=== PATIENT | female | born 1995 | race Caucasian/White ===

== ENCOUNTER → 2020-11-17 | Outpatient (REF) | payer OTHER ==
[2020-11-17 20:33] LABS: CHLAMYDIA DNA AMPLIFICATION NEGATIVE (NEGATIVE); GC DNA AMPLIFICATION NEGATIVE (NEGATIVE)
== END ==
LOC: M SFHCWAGY 17:03
PROVIDERS: ATTEND Nurse Practitioner Women's Health
DX: Z11.3 Encounter for screening for infections with a predominantly sexual mode of transmission (principal)

== ENCOUNTER → 2020-12-24 | Outpatient (CLI) | payer OTHER ==
--- NOTE | 2020-12-24 10:21 | REP ---
INDICATION: RENAL CALCULI COMPARISON: None. TECHNIQUE: Supine view of the abdomen and pelvis. FINDINGS: 1 cm calcification in the right upper quadrant may represent gallstone. Punctate nonobstructing right renal calculus suspected. Further evaluation of the urinary tract system is limited due to technique and bowel gas. No bowel obstruction. No organomegaly. Skeletal structures intact. IMPRESSION: Suspected cholelithiasis and possible 2 mm nonobstructing right renal calculus. Further evaluation of the urinary tract system is limited. If the patient remains symptomatic consider noncontrast CT of the abdomen. <Electronically signed by Zack Aguilar > 12/24/20 1019
== END ==
LOC: M WUC 09:38
PROVIDERS: ATTEND Urology
DX: N20.0 Calculus of kidney (principal)

== ENCOUNTER 2021-04-08 15:28 | Emergency (ER) | payer OTHER ==
[~2021-04-08] VITALS: Ht 152.4 cm; Wt 64.1 kg
[2021-04-08] MEDS ORDERED: ONDANSETRON 4MG/2ML VIAL IV ONE (17:30)
[2021-04-08] MEDS ORDERED: NS 1,000 ML IV ONE (17:30)
[2021-04-08 17:59] LABS: HEMATOCRIT 41.5 % (36.0-47.0); HEMOGLOBIN 14.1 g/dl (12.0-15.5); MEAN CORPUSCULAR HEMOGLOBIN 30.4 pg (27.0-33.0); MEAN CORPUSCULAR VOLUME 89.4 fl (80.0-96.0); PLATELET COUNT, AUTOMATED 184 10^3/uL (150-450); RED BLOOD COUNT 4.64 10^6/uL (4.00-5.40); WHITE BLOOD COUNT 10.9 10^3/uL (4.0-10.0)
[2021-04-08] MEDS ORDERED: ONDA4TAB6 PO (18:35)
[2021-04-08 19:20] VITALS: BP 122/59
== END 2021-04-08 19:23 | disposition home or self-care (01) ==
LOC: M ED 15:28
DX: O21.9 Vomiting of pregnancy, unspecified (principal); Z3A.01 Less than 8 weeks gestation of pregnancy; K21.9 Gastro-esophageal reflux disease without esophagitis; Z87.442 Personal history of urinary calculi; O99.611 Diseases of the digestive system complicating pregnancy, first trimester
CPT/HCPCS: 84702; 85027; 96361; 96374; 99284; J2405

== ENCOUNTER → 2021-05-03 | Outpatient (CLI) | payer OTHER ==
[~2021-05-03] MED LIST: ONDA4TAB6 PO
[2021-05-03 17:14] LABS: HEMATOCRIT 35.9 % (36.0-47.0); HEMOGLOBIN 12.2 g/dl (12.0-15.5); MEAN CORPUSCULAR HEMOGLOBIN 30.3 pg (27.0-33.0); MEAN CORPUSCULAR VOLUME 89.1 fl (80.0-96.0); PLATELET COUNT, AUTOMATED 186 10^3/uL (150-450); RED BLOOD COUNT 4.03 10^6/uL (4.00-5.40)
[2021-05-03 18:30] LABS: HEPATITIS C VIRUS ABY INDEX < 0.0 INDEX (<0.8); HIV 1&2 SCREEN CENTAUR NEGATIVE (NEGATIVE)
[2021-05-03 18:40] LABS: SICKLE CELL SCREEN NEGATIVE (NEGATIVE)
[2021-05-03 19:08] LABS: GC DNA AMPLIFICATION NEGATIVE (NEGATIVE)
== END ==
LOC: M PLALAB 14:23
PROVIDERS: ATTEND Advanced Practice Midwife
DX: Z34.01 Encounter for supervision of normal first pregnancy, first trimester (principal)

== ENCOUNTER 2021-06-07 12:06 | Emergency (ER) | payer OTHER ==
[~2021-06-07] VITALS: Ht 157.5 cm; Wt 68.0 kg
[2021-06-07 12:06] VITALS: BP 141/73
--- OUTSIDE RECORDS SUMMARY | 2021-06-07 12:12 | CCD | Continuity of Care Document ---
Author Author Kirsty MOORE P.A. Organization Unknown Address [address] [place] [address] Phone [phone] Care Team Providers Care Care Connector Name Role Phone Nguyễn Nicolas Publi AUTM [phone] Anjelica Jain TAXATION ECONOMIST AUTM [phone] Problems Description No Information Available Social History Type Date Description Comments Sex Unknown ETOH Use Denies alcohol use Tobacco Use Start: Unknown The patient has never vaped Tobacco Use Start: Unknown Patient has never smoked Smoking Status Reviewed: 05/13/21 Patient has never smoked Allergies, Adverse Reactions, Alerts Description No Known Drug Allergies Medications Active Medications SIG Qnty Indications Ordering Provide r Date Zyrtec Allergy Unknown Immunizations Description No Information Available Vital Signs Date Vital Result Comment 05/13/2021 11:04am BP Systolic 117 mmHg BP Diastolic 82 mmHg Heart Rate 67 /min Respiratory Rate 16 /min O2 % BldC Oximetry 97 % Body Temperature 96.6 F Weight 136.00 lb Height 60 inches 5'0" BMI (Body Mass Index) 26.6 kg/m2 Pain Level 6 09/24/2020 5:43pm BP Systolic 114 mmHg BP Diastolic 79 mmHg Heart Rate 66 /min Respiratory Rate 12 /min O2 % BldC Oximetry 99 % Body Temperature 97.9 F Weight 144.00 lb Height 60 inches 5'0" BMI (Body Mass Index) 28.1 kg/m2 Pain Level 0 Results Description No Information Available Procedures Date Code Description Status 05/13/2021 52946 Office/Outpatient Established Mo d MDM 30-39 Min Completed Medical Devices Description No Information Available Encounters Type Date Location Provider Dx Diagnosis Office Visit 05/13/2021 9:35a Main Office Brittny Villa J0 6.9 Acute upper respiratory infection, unspecified J01.90 Acute sinusitis, unspecified Z20.828 Contact w and exposure to ot h viral communicable diseases Assessments Date Code Description Provider 05/13/2021 J06.9 Acute upper respiratory infectio n, unspecified Brittny Villa 05/13/2021 J01.90 Acute sinusitis, unspecified Brittny Medrano 05/13/2021 Z20.828 Contact with and (cook spected) exposure to other viral communicable diseases Brittny Villa Plan of Treatment No Information Available Functional Status Description No Information Available Mental Status Description No Information Available Referrals Description No Information Available
--- OUTSIDE RECORDS SUMMARY | 2021-06-07 12:12 | CCD ---
Author Author [facility] [employer] [facility] Organization [facility] [employer] [facility] Address Unknown Phone Unavailable Care Team Providers Care Safety Lamp Keeper Name Role Phone Cindy Avila Unavailable PROBLEMS Type Condition ICD9-CM Code [id number] Code Onset Dates Condition S tatus W/U Status Risk SNOMED Code Notes Problem Calculus of gallbladder without cholecystitis wi thout obstruction K80.20 Active confirmed 91685355 Problem Supervision of other normal Z34.80 Ac tive confirm 595772889 Problem Urinary hesitancy R39.11 Active confirmed 59 54753 Problem Renal calculi N20.0 Active confirmed 915945 07 ALLERGIES No Known Allergies ENCOUNTERS from 1997 to 2021-04-30 Encounter Location Date Provider Diagnosis [facility] [address] [facility] [phone] [place] [address] Apr, Cindy Austin IMMUNIZATIONS No Information SOCIAL HISTORY Tobacco Use: Social History Observation Description Date Details (start date - stop date) Never Smoker Sex Assigned At : Social History Observation Description Sex Assigned At Unknown Education: Question Answer Notes Level of Education: College Audit Question Answer Notes Total Score: 0 Interpretation: Alcohol Education Language: Question Answer Notes Languages spoken: Prydeinig Christianity: Question Answer Notes Christianity No latter day beliefs that would impact health care. Domestic Violence: Question Answer Notes Status: Number of months/years in current relationship? 03/2019 Does the patient divulge that the partner hit them? No Does the patient divulge that the partner hits the chi ldren in the household? No Does the patient consider the partner abusive? No Has the patient ever been in a situation involving domestic violence? No Has the patietn ever been injured, homeb ound, or hospitalized due to an altercation with significant other? No Drug and Alcohol Question Answer Notes Total Score: 0 Interpretation: No problems reported Alcohol Screening: Question Answer Notes Did you have a drink containing alcohol in the past year? No Points 0 Interpretation Negative Tobacco Use: Question Answer Notes Are you a: never smoker REASON FOR REFERRAL No Information VITAL SIGNS No information MEDICATIONS Medication SIG (Take, Route, Frequency, Duration) Notes Start Da te End Date Status 27-1 MG 1 tablet Orally Once a day Active Reglan 10 MG 1 tablet Orally Twice a day for 30 day(s) Mar, Not-Taking Sulfamethoxazole-Trimethoprim 800-160 MG TAKE 1 TABLET BY MOUTH TWICE DAILY FOR 5 DAYS Oral for 5 Not-Taking Lotrimin AF 1 % 1 application Externally Twice a day for 28 day(s) Not-Taking Aurovela FE 1/20 1-20 MG-MCG 1 tablet Orally Once a day for 84 day(s) Not-Taking Zofran 4 MG 1 tablet Orally Once a day prn Active Terbinafine HCl 250 MG 1 tablet Orally Once a day for 90 day(s) May, Not-Taking Clotrimazole 1 % 1 application Externally Twice a day for 28 day(s) Not-Taking PROCEDURES No Information RESULTS No Results REASON FOR VISIT [place] Letter MEDICAL (GENERAL) HISTORY Type Description Date Medical History kidney stone Medical History gall stones Medical History hpv Medical History herpes simplex Medical History abnormal cells on cervic x 1 Surgical History No know Surgical history Hospitalization History No know Hospitalization history Goals Section No Information Health Concerns No Information MEDICAL EQUIPMENT No Information MENTAL STATUS No Information FUNCTIONAL STATUS No Information ASSESSMENTS No Information PLAN OF TREATMENT Next Appt Details Provider Name:Michi Serrato, 09:00:00 AM, [address] [facility], , [place], [address], Insurance Providers Payer Name Payer Address Payer Phone Insured Name Patient Relati onship to Insured Coverage Start Date Coverage End Date [place] [phone] JAQUELIN CUENCA self
--- OUTSIDE RECORDS SUMMARY | 2021-06-07 12:12 | CCD ---
Author Author [facility] Organization [facility] Address Unknown Phone Unavailable Care Team Providers Care Linseed Oil Refiner Name Role Phone Michi Serrato Unavailable PROBLEMS Type Condition ICD9-CM Code [id number] Code Onset Dates Condition S tatus W/U Status Risk SNOMED Code Notes Problem Calculus of gallbladder without cholecystitis wi thout obstruction K80.20 Active confirmed 14364684 Problem Supervision of other normal Z34.80 Ac tive confirm 880944862 Problem Urinary hesitancy R39.11 Active confirmed 59 75421 Problem Renal calculi N20.0 Active confirmed 922456 07 ALLERGIES No Known Allergies ENCOUNTERS from 1997 to 2021-05-20 Encounter Location Date Provider Diagnosis [facility] [address] [place] [address] [place] [address] Apr, Michi Serrato 13 weeks gestation o f Z3A.13 and Encounter for supervision of normal first , first trimester Z34.01 IMMUNIZATIONS No Information SOCIAL HISTORY Tobacco Use: Social History Observation Description Date Details (start date - stop date) Never Smoker Sex Assigned At : Social History Observation Description Sex Assigned At Unknown Education: Question Answer Notes Level of Education: College Audit Question Answer Notes Total Score: 0 Interpretation: Alcohol Education Language: Question Answer Notes Languages spoken: Gibraltarian Scientology: Question Answer Notes Scientology No jew beliefs that would impact health care. Domestic [...] REASON FOR REFERRAL No Information VITAL SIGNS Weight 137 lbs Apr, Weight-kg 62.14 kg Apr, Height 60 in Apr, BMI 26.756 kg/m2 Apr, Blood pressure systolic 118 mm Hg Apr, Blood pressure diastolic 68 mm Hg Apr, MEDICATIONS Medication SIG (Take, Route, Frequency, Duration) Notes Start Da te End Date Status Terbinafine HCl 250 MG 1 tablet Orally Once a day for 90 day(s) May, Not-Taking Reglan 10 MG 1 tablet Orally Twice a day for 30 day(s) Mar, Not-Taking Aurovela FE 1/20 1-20 MG-MCG 1 tablet Orally Once a day for 84 day(s) Not-Taking Lotrimin AF 1 % 1 application Externally Twice a day for 28 day(s) Not-Taking 27-1 MG 1 tablet Orally Once a day Active Clotrimazole 1 % 1 application Externally Twice a day for 28 day(s) Not-Taking Zofran 4 MG 1 tablet Orally Once a day prn Active Sulfamethoxazole-Trimethoprim 800-160 MG TAKE 1 TABLET BY MOUTH TWICE DAILY FOR 5 DAYS Oral for 5 Not-Taking PROCEDURES No Information RESULTS No Results REASON FOR VISIT 4 WK PN MEDICAL (GENERAL) HISTORY Type Description Date Medical History kidney stone Medical History gall stones Medical History hpv Medical History herpes simplex Medical History abnormal cells on cervic x 1 Surgical History No know Surgical history Hospitalization History No know Hospitalization history Goals Section No Information Health Concerns No Information MEDICAL EQUIPMENT No Information MENTAL STATUS No Information FUNCTIONAL STATUS No Information ASSESSMENTS Encounter Date Diagnosis Assessment Notes Treatment Notes Treatm ent Clinical Notes Apr, 13 weeks gestation of (ICD-10 - Z3A.13 ) Apr, Encounter for supervision of normal first , first trimester (ICD-10 - Z34.01) PLAN OF TREATMENT Next Appt Details 4 Weeks Reason: appt Provider Name:Michi Serrato, 2020-10- 07:30:00 AM, [address] [facility], , [place], [address], Follow Up:4 WeeksPrenatal appt Insurance Providers Payer Name Payer Address Payer Phone Insured Name Patient Relati onship to Insured Coverage Start Date Coverage End Date [address] [phone] JAQUELIN CUENCA self
--- OUTSIDE RECORDS SUMMARY | 2021-06-07 12:12 | CCD ---
Author Author [facility] Organization [facility] [employer] [facility] Address Unknown Phone Unavailable Care Team Providers Care Band Teacher Name Role Phone Nohemi Banegas Unavailable PROBLEMS Type Condition ICD9-CM Code [id number] Code Onset Dates Condition S tatus W/U Status Risk SNOMED Code Notes Problem Calculus of gallbladder without cholecystitis wi thout obstruction K80.20 Active confirmed 60922190 Problem Supervision of other normal Z34.80 Ac tive confirm 045494316 Problem Urinary hesitancy R39.11 Active confirmed 59 40715 Problem Renal calculi N20.0 Active confirmed 761915 07 ALLERGIES No Known Allergies ENCOUNTERS from 1997 to 2021-04-21 Encounter Location Date Provider Diagnosis [facility] [address] [place] [address] [place] [address] Mar, Nohemi Munozkathrin Encounter for sup ervision of normal first in first trimester Z34.01 and 9 weeks gestation of Z3A.09 IMMUNIZATIONS No Information SOCIAL HISTORY Tobacco Use: Social History Observation Description Date Details (start date - stop date) Never Smoker Sex Assigned At : Social History Observation Description Sex Assigned At Unknown Education: Question Answer Notes Level of Education: College Audit Question Answer Notes Total Score: 0 Interpretation: Alcohol Education Language: Question Answer Notes Languages spoken: German Nondenominational: Question Answer Notes Nondenominational No taoism beliefs that would impact health care. Domestic [...] FOR REFERRAL No Information VITAL SIGNS Weight 137.8 lbs Mar, Weight-kg 62.5 kg Mar, Height 60 in Mar, BMI 26.912 kg/m2 Mar, Blood pressure systolic 118 mm Hg Mar, Blood pressure diastolic 62 mm Hg Mar, MEDICATIONS Medication SIG (Take, Route, Frequency, Duration) [...] Information RESULTS No Results REASON FOR VISIT 1ST PN MEDICAL (GENERAL) HISTORY Type Description Date [...] Notes Treatment Notes Treatm ent Clinical Notes Mar, Encounter for supervision of normal first in first trimester (ICD-10 - Z34.01) Mar, 9 weeks gestation of (ICD-10 - Z3A.09) PLAN OF TREATMENT Treatment Notes Test Name Order Date HIV 1&2 ANTIBODY SCREEN 2021-04-20 SYPHILIS ANTIBODY (RPR SCREEN) 2021-04-20 CBC - Complete Blood Count 2021-04-20 RUBELLA IMMUNE STATUS IgG 2021-04-20 URINE CULTURE 2021-04-20 CHLAMYDIA & GC DNA AMPLIFICAT 2021-04-20 HEPATITIS C ANTIBODY INDEX 2021-04-20 HBSAG 2021-04-20 Type and Screen Prenatal1 2021-04-20 SICKLE CELL SCREEN 2021-04-20 Next Appt Details 4 Weeks Reason:- Routine follow up Provider Name:Michi Serrato, 09:00:00 AM, [address] [facility], , [place], [address], Follow Up:4 Weeks- Routine follow up Insurance Providers Payer Name Payer Address Payer Phone Insured Name Patient Relati onship to Insured Coverage Start Date Coverage End Date [address] [phone] JAQUELIN CUENCA self
--- OUTSIDE RECORDS SUMMARY | 2021-06-07 12:12 | CCD | Continuity of Care Document ---
Author Author Kirsty MOORE P.A. Organization Unknown Address [address] [place] [address] Phone [phone] Care Team Providers Care Advertising Campaign Manager Name Role Phone Nguyễn Nicolas Publi AUTM [phone] Anjelica Jain ANALYTICAL LEAD AUTM [phone] Problems Description No Information Available Social History [...] Available Procedures Date Code Description Status 05/13/2021 37129 Office/Outpatient Established Mo d MDM 30-39 Min [...]
--- OUTSIDE RECORDS SUMMARY | 2021-06-07 12:13 | CCD | Continuity of Care Document ---
Author Author [facility] Organization [facility] Address Unknown Phone Unavailable Care Team Providers Care Color Checker Roving Or Yarn Name Role Phone Desiree Cornejo Unavailable Unavailable Allergies, Adverse Reactions, Alerts Substance Reaction Status Criticality No Known Allergies Active No Information Medications Medication Instructions Dosage Effective Dates (start - stop) Sta tus Comments No Drug Therapy Prescribed Problems Condition Effective Dates (start - stop) Clinical Status C omments Human immunodeficiency virus [HIV] counseling Other sex counseling Encounter for test, result positive Procedures Procedure Date URINE TEST OFFICE VISIT, [facility] Without Test CVR Blood Pressure CVR Med.Svc. Height/Weight CVR Counterintelligence Analyst.Svc. Contraceptive CVR Counterintelligence Analyst.Svc. Nutrition CVR Counterintelligence Analyst.Svc. Options CVR Counterintelligence Analyst.Svc. WIC CVR Counterintelligence Analyst.Svc. Other CVR Counterintelligence Analyst.Svc. STI / H Results Test Name Date and Time Measure Units Reference Range Abnormal Flag St atus Comments Panel Description: High Sensitivity Urine Test Fi nal High Sensitivity Urine Test 09:12:05 Positive A Final Advance Directives Directive Yes / No Effective Date File Name No Information Encounters Encounter Description Practice Location Reason(s) For Visit Diagnose s Date Provider Providers Copied on Encounter OFFICE VISIT, [facility], [address] , [place], [place], [id number], tel:[phone] [facility] Test (ch ief complaint) Human immunodeficiency virus [HIV] couns elingOther sex counselingEncounter for test, result positive Samantha Ramírez. [address] [place] [address], [id number], [place]. tel:[phone] Referring Provider: Desiree Singh, [address], [place], [id number]. tel:[phone] Family History Family Member Diagnosis Age At Onset No Information Immunizations Vaccine Date Status Comments No Information Payers Payer name Insurance type Covered green party ID Authorization(s ) [facility] [id number] Social History Type Description Quantity Date Captured Comments Alcohol Use Details Unknown Caffeine Use Details Unknown Tobacco Use Status Never smoked tobacco Smoking Status Never smoker Sex Female Vital Signs Date / Time: Height Weight BMI Pulse Rate Blood Pressure Temperatu re Respiratory Rate Body Surface Area Head Circumference BMI percentile Pulse Ox In haled Ox 9:09 AM 60.00 in 146.00 lbs 28.51 kg/meter(2) 118/76 m m[Hg] Chief Complaint And Reason For Visit Most recent encounter only, dated '03/27/2021 09:00'. Test (chief complaint) Reason For Referral Reason For Referral No Information Plan Of Treatment Date Type Action Status No Information History Of Present Illness Encounter Date Complaint History Of Present I llness No Information Functional Status Date Functional Assessment No Information Medications Administered Medication Instructions Dosage Effective Dates (start - stop) Sta tus Comments No Drug Therapy Prescribed Instructions Date Instruction Additional Informati on No Information Assessments Type Assessment Date assessment Human immunodeficiency virus [HIV] couns eling assessment Other sex counseling assessment Encounter for test, result pos itive Goals Health Concern Goal Type Priority Status Date No Information Medical Equipment Description Device Hannah Device Identifier Effective Hood es (start - stop) Status No Information Mental Status Date Cognitive Assessment Orientation - Oriented to ti me, place, person, situation.Normal Orientation Health Concerns Observation Date No Information Concern Status Date No Information Physical Examination Exam Findings Details Neurological Normal Level of consciousne ss - Normal. Orientation - Normal. Psychiatric Normal Orientation - Mobile ed to time, place, person & situation.
--- OUTSIDE RECORDS SUMMARY | 2021-06-07 12:13 | CCD ---
Author Author [facility] Organization [facility] Address Unknown Phone Unavailable Care Team Providers Care Tower Observer Name Role Phone NO, PCP Unavailable Unavailable Dayan Singh Unavailable Unavailable Dayan Singh Unavailable Unavailable Dayan Singh Unavailable Unavailable Dayan Singh Unavailable Unavailable Dayan Singh Unavailable Unavailable Dayan Singh Unavailable Unavailable Dayan Singh Unavailable Unavailable Dayan Singh Unavailable Unavailable Dayan Singh Unavailable Unavailable Dayan Singh Unavailable Unavailable Dayan Singh Unavailable Unavailable Dayan Singh Unavailable Unavailable Dayan Singh Unavailable Unavailable Dayan Singh Unavailable Unavailable Dayan Singh Unavailable Unavailable Dayan Singh Unavailable Unavailable Dayan Singh Unavailable Unavailable Dayan Singh Unavailable Unavailable Dayan Singh Unavailable Unavailable Dayan Singh Unavailable Unavailable Dayan Singh Unavailable Unavailable Dayan Singh Unavailable Unavailable TURRIN, TANIA Unavailable Unavailable TURRIN, TANIA Unavailable Unavailable TURRIN, TANIA Unavailable Unavailable TURRIN, TANIA Unavailable Unavailable JAEMS MOORE PA Unavailable Unavailable OSCARJAMES ANGEL PA Unavailable Unavailable JAMES MOORE PA Unavailable Unavailable JAMES MOORE PA Unavailable Unavailable DANIA MOORENATHAN PA Unavailable Unavailable DANIA MOORENATHAN PA Unavailable Unavailable DANIA MOORENATHAN PA Unavailable Unavailable JAMES MOORE PA Unavailable Unavailable JAMES MOORE PA Unavailable Unavailable OSCAR, JAMES PA Unavailable Unavailable OSCAR, JAMES PA Unavailable Unavailable OSCAR, JAMES PA Unavailable Unavailable OSCAR, JAMES PA Unavailable Unavailable OSCAR, JAMES PA Unavailable Unavailable OSCAR, JAMES PA Unavailable Unavailable OSCAR, JAMES PA Unavailable Unavailable OSCAR, JAMES PA Unavailable Unavailable OSCAR, JAMES PA Unavailable Unavailable OSCAR, JAMES PA Unavailable Unavailable OSCAR, JAMES PA Unavailable Unavailable OSCAR, JAMES PA Unavailable Unavailable OSCAR, JAMES PA Unavailable Unavailable OSCAR, JAMES PA Unavailable Unavailable OSCAR, JAMES PA Unavailable Unavailable OSCAR, JAMES PA Unavailable Unavailable OSCAR, JAMES PA Unavailable Unavailable OSCAR, JAMES PA Unavailable Unavailable OSCAR, JAMES PA Unavailable Unavailable OSCAR, JAMES PA Unavailable Unavailable OSCAR, JAMES PA Unavailable Unavailable OSCAR, JAMES PA Unavailable Unavailable OSCAR, JAMES PA Unavailable Unavailable OSCAR, JAMES PA Unavailable Unavailable OSCAR, JAMES PA Unavailable Unavailable OSCAR, JAMES PA Unavailable Unavailable OSCAR, JAMES PA Unavailable Unavailable RING, K WYATT PA Unavailable Unavailable RING, K WYATT PA Unavailable Unavailable RING, K WYATT PA Unavailable Unavailable RING, K WYATT PA Unavailable Unavailable RING, K WYATT PA Unavailable Unavailable RING, K WYATT PA Unavailable Unavailable RING, K WYATT PA Unavailable Unavailable RING, K WYATT PA Unavailable Unavailable RING, K WYATT PA Unavailable Unavailable RING, K WYATT PA Unavailable Unavailable RING, K WYATT PA Unavailable Unavailable RING, K WYATT PA Unavailable Unavailable RING, K WYATT PA Unavailable Unavailable RING, K WYATT PA Unavailable Unavailable RING, K WYATT PA Unavailable Unavailable RING, K WYATT PA Unavailable Unavailable RING, K WYATT PA Unavailable Unavailable RING, K WYATT PA Unavailable Unavailable RING, K WYATT PA Unavailable Unavailable RING, K WYATT PA Unavailable Unavailable RING, K WYATT PA Unavailable Unavailable Re-disclosure Warning The records that you are about to access may contain information from federally-assisted alcohol or drug abuse programs. If such information is present, then the following federally mandated warning applies: This information has been disclosed to you from records protected by federal confidentiality rules (42 CFR part 2). The federal rules prohibit you from making any further disclosure of this information unless further disclosure is expressly permitted by the written consent of the person to whom it pertains or as otherwise permitted by 42 CFR part 2. A general authorization for the release of medical or other information is NOT sufficient for this purpose. The Federal rules restrict any use of the information to criminally investigate or prosecute any alcohol or drug abuse patient.The records that you are about to access may contain highly sensitive health information, the redisclosure of which is protected by Article 27-F of the [facility] Public Health law. If you continue you may have access to information: Regarding HIV / AIDS; Provided by facilities licensed or operated by the [facility] Office of Mental Health; or Provided by the [facility] Office for People With Developmental Disabilities. If such information is present, then the following [facility] mandated warning applies: This information has been disclosed to you from confidential records which are protected by state law. State law prohibits you from making any further disclosure of this information without the specific written consent of the person to whom it pertains, or as otherwise permitted by law. Any unauthorized further disclosure in violation of state law may result in a fine or fdc sentence or both. A general authorization for the release of medical or other information is NOT sufficient authorization for further disc losure. Encounters Encounter Providers Location Date Indications [facility] [address] [place] [address] 05/18/2021 12:00:00 AM EDT eCW1 ([facility]) Outpatient Attender: JAMES coffey 05/13/2021 09:35:00 AM EDT MEDENT ([facility]) Unknown [address] [facility] [address] 04/30/2021 12:00:00 AM EDT eCW1 ([facility]) ([facility]) [facility] OB Visit [address] [place] [address] 04/20/2021 12:00:00 AM EDT eCW1 ([facility]) Unknown [address] [facility] [id number] 03/29/2021 12:00:00 AM EDT [facility]CW1 [facility] morales 03/27/2021 09:00:00 AM EDT - 03/27/2021 09:00:00 AM EDT Encounter for test, result positiveOther sex counselingHuman immunodeficiency virus [HIV] counseling NextGen ([facility]) Encounter for test, result pos itive Other sex counseling Human immunodeficiency virus [HIV] couns eling Unknown [address] [facility] Y [address] 01/12/2021 12:00:00 AM EDT eCW1 ([facility]) Outpatient [address] [facility] Y [address] 12/07/2020 12:00:00 AM EDT eCW1 ([facility]) Outpatient [address] [facility] Y [address] 11/17/2020 12:00:00 AM EDT eCW1 ([facility]) Outpatient [address] [facility] Y [address] 10/13/2020 12:00:00 AM EST eCW1 ([facility]) Outpatient Attender: WYATT Lee 09/24/2020 04:40:00 PM EST MEDENT ([facility]) Unknown [address] [facility] Y [address] 07/31/2020 12:00:00 AM EST [facility]1 [facility] Unknown [address] [facility] Y [address] 07/23/2020 12:00:00 AM EST [facility] Outpatient [address] [facility] Y [address] 06/18/2020 12:00:00 AM EDT [facility]CW1 [facility]) Unknown [address] [facility] Y [address] 06/07/2020 12:00:00 AM EDT [facility]CW1 [facility] [address] [facility] [place] [address] 06/05/2020 12:00:00 AM EDT eCW1 ([facility]) [place] [address] [facility] [place] [address] 05/28/2020 12:00:00 AM EDT eCW1 ([facility]) Outpatient Attender: JAMES coffey 05/16/2020 09:50:00 AM EDT MEDENT ([facility]) Emergency Attender: TANIA Hernandezsultant: PCP NO 04/22/2020 03:06:00 PM EDT - 04/22/2020 06:08:00 PM EDT [facility] Patient discharged. Medications Medication Brand Name Start Date Product Form Dose Route Admi nistrative Instructions Pharmacy Instructions Status Indications Reaction Description Data Source(s) Metoclopramide 10 MG Oral Tablet [Reglan] Reglan 10 MG Nellie n 10 MG 03/29/2021 12:00:00 AM EDT 1.0 {tablet} suspended Reglan 10 MG eCW1 ([facility]) Metoclopramide 10 MG Oral Tablet [Reglan] Reglan 10 MG Nellie n 10 MG 03/29/2021 12:00:00 AM EDT 1.0 {tablet} suspended Reglan 10 MG eCW1 ([facility]) Metoclopramide 10 MG Oral Tablet [Reglan] Reglan 10 MG Nellie n 10 MG 03/29/2021 12:00:00 AM EDT 1.0 {tablet} suspended Reglan 10 MG eCW1 ([facility]) Metoclopramide 10 MG Oral Tablet [Reglan] Reglan 10 MG Nellie n 10 MG 03/29/2021 12:00:00 AM EDT 1.0 {tablet} active Re glan 10 MG eCW1 ([facility]) Tamsulosin hydrochloride 0.4 MG Oral Capsule Tamsulosin HCL 09/24/2020 12:00:00 AM EST ORAL active MEDENT ([facility], [facility]) No Active Medications 09/24/2020 12:00:00 AM EST completed MEDENT ([facility], [facility]) terbinafine 250 MG Oral Tablet Terbinafine HCl 250 MG Terbin afine HCl 250 MG 06/18/2020 12:00:00 AM EDT 1.0 {tablet} suspende d Terbinafine HCl 250 MG eCW1 ([facility]) terbinafine 250 MG Oral Tablet Terbinafine HCl 250 MG Terbin afine HCl 250 MG 06/18/2020 12:00:00 AM EDT 1.0 {tablet} active Terbinafine HCl 250 MG eCW1 ([facility]) terbinafine 250 MG Oral Tablet Terbinafine HCl 250 MG Terbin afine HCl 250 MG 06/18/2020 12:00:00 AM EDT 1.0 {tablet} suspended eCW1 ([facility]) terbinafine 250 MG Oral Tablet Terbinafine HCl 250 MG Terbin afine HCl 250 MG 06/18/2020 12:00:00 AM EDT 1.0 {tablet} suspende d Terbinafine HCl 250 MG eCW1 ([facility]) terbinafine 250 MG Oral Tablet Terbinafine HCl 250 MG Terbin afine HCl 250 MG 06/18/2020 12:00:00 AM EDT 1.0 {tablet} active Terbinafine HCl 250 MG eCW1 ([facility]) terbinafine 250 MG Oral Tablet Terbinafine HCl 250 MG Terbin afine HCl 250 MG 06/18/2020 12:00:00 AM EDT 1.0 {tablet} suspende d Terbinafine HCl 250 MG eCW1 ([facility]) terbinafine 250 MG Oral Tablet Terbinafine HCl 250 MG Terbin afine HCl 250 MG 06/18/2020 12:00:00 AM EDT 1.0 {tablet} active Terbinafine HCl 250 MG eCW1 ([facility]) terbinafine 250 MG Oral Tablet Terbinafine HCl 250 MG Terbin afine HCl 250 MG 06/18/2020 12:00:00 AM EDT 1.0 {tablet} suspende d Terbinafine HCl 250 MG eCW1 ([facility]) terbinafine 250 MG Oral Tablet Terbinafine HCl 250 MG Terbin afine HCl 250 MG 06/18/2020 12:00:00 AM EDT 1.0 {tablet} suspende d Terbinafine HCl 250 MG eCW1 ([facility]) terbinafine 250 MG Oral Tablet Terbinafine HCl 250 MG Terbin afine HCl 250 MG 06/18/2020 12:00:00 AM EDT 1.0 {tablet} active Terbinafine HCl 250 MG eCW1 ([facility]) terbinafine 250 MG Oral Tablet Terbinafine HCl 250 MG Terbin afine HCl 250 MG 06/18/2020 12:00:00 AM EDT 1.0 {tablet} suspende d Terbinafine HCl 250 MG eCW1 ([facility]) terbinafine 250 MG Oral Tablet Terbinafine HCl 250 MG Terbin afine HCl 250 MG 06/18/2020 12:00:00 AM EDT 1.0 {tablet} suspende d Terbinafine HCl 250 MG eCW1 ([facility]) Clotrimazole 10 MG/ML Topical Cream Clotrimazole 1 % Clotrim azole 1 % 05/28/2020 12:00:00 AM EDT 1.0 {application} active Clotrimazole 1 % eCW1 ([facility]) Clotrimazole 10 MG/ML Topical Cream Clotrimazole 1 % Clotrim azole 1 % 05/28/2020 12:00:00 AM EDT 1.0 {application} active Clotrimazole 1 % eCW1 ([facility]) Hydroxyzine Hydrochloride 25 MG Oral Tablet Hydroxyzine HCL 05/16/2020 12:00:00 AM EDT ORAL completed MEDENT ([facility], [facility]) Insurance Providers Payer name Policy type / Coverage type Policy ID Covered republican ID Covered republican's relationship to dyer Policy Dyer Plan Information [facility] [id number] [facility] - O/P [id number] Problems, Conditions, and Diagnoses Code Display Name Description Problem Type Effective Dates Data Source(s) [id number] Personal history of urinary calculi Personal his tory of urinary calculi Diagnosis 04/22/2020 03:06:00 PM EDT [facility] N3001 Acute cystitis with hematuria Acute cystitis with ld turia Diagnosis 04/22/2020 03:06:00 PM EDT [facility] K8020 Calculus of gallbladder without cholecys titis without obstruction Calculus of gallbladder without cholecystitis without obstruction Diagnosis 04/22/2020 03:06:00 PM EDT [facility] N200 Calculus of kidney Calculus of kidney Diagnosis 0 03:06:00 PM EDT [facility] R300 Dysuria Dysuria Diagnosis 04/22/2020 03:06:00 PM ED T [facility] Z34.80 care Supervision of other normal Maria Esther mancilla 04/19/2021 12:00:00 AM EDT eCW1 ([facility]) N20.0 [id number] Renal calculi Problem 05/28/2020 12:00:00 AM EDT eCW1 ([facility]) R39.11 [id number] Urinary hesitancy Problem 05/28/2020 12:00:0 0 AM EDT eCW1 ([facility]) K80.20 [id number] Calculus of gallblad martha without cholecystitis without obstruction Problem 05/28/2020 12:00:00 AM EDT eCW ([facility]) Surgeries/Procedures Procedure Description Date Indications Data Source(s) OFFICE OUTPATIENT VISIT 25 MINUTES 05/13/2021 12:00:00 AM EDT MEDENT ([facility], [facility]) 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 Contraceptive 03/27/2021 12 :00:00 AM EDT - 03/27/2021 12:00:00 AM EDT [facility] ([facility]) CVR Med.Svc. Height/Weight 03/27/2021 12 :00:00 AM EDT - 03/27/2021 12:00:00 AM EDT [facility] ([facility]) CVR Blood Pressure 03/27/2021 12:00:00 AM EDT - 2020 12:00:00 AM EDT [facility] ([facility]) HCS Without Test 03/27/2021 12:00:00 AM EDT - 03/27/20 21 12:00:00 AM EDT [facility] ([facility]) OFFICE VISIT, NEW 03/27/2021 12:00:00 AM EDT - 021 12:00:00 AM EDT [facility] ([facility]) URINE TEST 03/27/2021 12:00:00 AM EDT - 03/27/2021 12:00:00 AM EDT [facility] ([facility]) Results ID Date Data Source [id number] 05/13/2021 12:00:00 AM EDT [facility] Name Value Range Interpretation Code Description Data Salma rce(s) Supporting Document(s) SARS-CoV2 Rapid Antigen Negative [facility] This lab was reported by [facility]. ID Date Data Source [id number] 07/08/2020 12:00:00 AM EST [facility] Name Value Range Interpretation Code Description Data Salma rce(s) Supporting Document(s) SARS coronavirus 2 Ag [facility] This lab was ordered by [facility] and reported by [facility]. ID Date Data Source [id number] 03/27/2021 09:12:05 AM EDT [facility] ([facility]) Name Value Range Interpretation Code Description Data Salma rce(s) Supporting Document(s) Positive Abnormal (applies to non-num lacho results) High Sensitivity Urine Test [facility] ID Date Data Source CHLAMYDIA & GC DNA AMPLIFICAT 11/17/2020 12:00:00 AM EDT eCW 1 ([facility]) Name Value Range Interpretation Code Description Data Salma rce(s) Supporting Document(s) Chlamydia trachomatis rRNA [Presence] in Unspecified specimen by Probe and target amplification method NEGATIVE NEGATIVE eCW1 ([facility]) ID Date Data Source [id number] 09/24/2020 05:59:00 PM EST MEDENT ([facility]) Name Value Range Interpretation Code Description Data Salma rce(s) Supporting Document(s) Bacteria identified in Urine by Culture Laboratory test result [facility] ([facility]) Rx Tamsulosin ID Date Data Source [id number] 07/23/2020 12:00:00 AM EST [facility] Name Value Range Interpretation Code Description Data Salma rce(s) Supporting Document(s) SARS-CoV2 Rapid Antigen [facility] This lab was ordered by [facility] and reported by [facility]. ID Date Data Source Test, Urine 06/18/2020 12:51:47 PM EDT eCW1 ([facility]) Name Value Range Interpretation Code Description Data Salma rce(s) Supporting Document(s) Choriogonadotropin.beta subunit ( test) [Presence] in Urin e neg Test, Urine eCW1 ([facility]) yes Internal QC Acceptable (Y/N) e CW1 ([facility]) ID Date Data Source Urinalysis, no micro 05/28/2020 01:04:29 PM EDT eCW1 ([facility]) Name Value Range Interpretation Code Description Data Salma rce(s) Supporting Document(s) 1.020 Spec gravity eCW1 ([facility]) trace Leukocyte eCW1 ([facility]) 5 pH eCW1 ([facility]) neg Nitrate eCW1 ([facility]) neg Protein eCW1 ([facility]) neg Glucose eCW1 ([facility]) neg Ketones eCW1 ([facility]) normal Urobili eCW1 ([facility]) Internal QC Acceptable (Y/N) e CW1 ([facility]) neg Bilirubin eCW1 ([facility]) neg Blood eCW1 ([facility]) ID Date Data Source [id number] 04/22/2020 03:06:00 PM EDT [facility] 1 OrderSheet [facility] Emergency Department [address] [place] [address] Phone #: ext- [phone] 04/22/2020 14:52 [id number] Sex: F : 1995 Age: 24yWEIGHT:63.0 kg (S) HEIGHT:60 inches (S) BMI:27.1ALLERGIES: No Known Drug AllergyCHIEF COMPLAINT: dysuriaDIAGNOSIS: Biliary calculus, Urinary tract infectious disease, Kidney stoneLAB ORDERSOrder Description Priority Entered Acknowledged InitialedUrinalysis (Clean STAT 15:08 04/22/2020 15:08 Dimitri Mcdonough) Marce McdonoughNLakshmi RLakshmiNLakshmi; Verbal order per; Paul Mart-CCBC w Diff STAT 15:17 04/22/2020 15:33 Jabari Bear flosserCarl Doshi-C; [id number] STAT 15:17 04/22/2020 15:33 Jabari Bear flosser, Carl ER P.A.-C; [id number] STAT 15:17 04/22/2020 15:33 [place] Paul Bear flosser, Carl HITESH P.A.-C; [id number] Serum Qual STAT 15:17 04/22/2020 15:33 Jabari Bear flosser, Carl ER P.A.-C; Zvzo2Wsadrog, Urine STAT 17:03 04/22/2020 17:25 Janette,(Urine, Clean Rccecil Bear Lucero R.N.Catch) P.A.-C;DIAGNOSTIC STUDY ORDERSOrder Description Priority Entered Acknowledged InitialedCT ABD PEL W/O STAT 15:17 04/22/2020 Ack'd: 15:42 16:45 Sharonda,Oral W/O IV Marce Turner.Preeti.Contrast P.A.-C; R.N.(Oxygen?(No))(IV?(Yes)) Reason for Study: ? renal stoneMEDICATION/IV/DRIP/FLUID ORDERS 2 OrderSheet [facility] Emergency Department [address] [place] [address] Phone #: ext- [phone] 04/22/2020 14:52 Patient: JAQUELIN CUENCA Sex: F : 1995 Age: 24yOrder Description Priority Entered Acknowledged InitialedIV NS : Bolus 500 15:17 04/22/2020 15:43 Sharonda,mL, then 75 mL/hr Paul Zheng R.N. P.A.- C;Zofran IVP 4 mg 15:17 04/22/2020 15:44 Paul Mcdonough R.N. P.A.-C;Benadryl IVP 25 mg 15:17 04/22/2020 15:45 Paul Mcdonough RLakshmiN. P.A.-C;GENERAL ORDERSOrder Description Priority Entered Acknowledged InitialedNPO 15:17 04/22/2020 15:42 Paul Mcdonough R.N., P.A.-C;Saline Lock 15:17 04/22/2020 15:42 Paul Mcdonough R.N.;[Electronically signed by Lucero Savage R.N. (18:13 04/22/2020)][Electronically signed by Paul Bear P.A.-C (12:13 04/23/2020)][Electronically locked by Lucero Savage R.N. (18:13 04/22/2020)] Name Value Range Interpretation Code Description Data Salma rce(s) Supporting Document(s) ID Date Data Source [id number] 04/22/2020 03:06:00 PM EDT [facility] 1 Medication Reconciliation Report [facility] Emergency Department [address] [place] [address] Phone #: ext- [phone] 04/22/2020 14:52 Patient: JAQUELIN CUENCA Sex: F : 1995 Age: 24yWeight: 63.0 kgHeight/Length: 60 in.BMI: 27.1ALLERGIES: No Known Drug AllergyThe patient's Home Medications are listed below:THE FOLLOWING MEDICATIONS NEED TO BE RECONCILED: Control Pills 1 pill, dailyThe source(s) of the original Home Medication information:patientThe following Medications were given to the patient in the Emergency Department:IV NS IV Fluids bolus 500 mL wide open, then 75 mL/hr, administered: 04/22/2020 3:43:00 PMZofran [IVP] IVP 4 mg, administered: 04/22/2020 3:44:00 PMBenadryl [IVP] IVP 25 mg diluted in NS 10 mL, administered: 04/22/2020 3:45:00 PMThe following Medications were prescribed to the patient:Macrobid 100 mg capsule Take 1 capsule twice a day for 7 days -- Dispense 14 capsule. Refills: 0.Substitution permitted.Pharmacy - [facility] [id number] ; [place] [address]. .Flomax 0.4 mg capsule Take 1 capsule once a day for 14 days -- To help with expulsion of stone.recommend to take in the AM. Dispense 14 capsule. Refills: 0. Substitution permitted.Pharmacy - [facility] [address] [place] [address] [address] ; [place] [address]. .naproxen 500 mg tablet Take 1 tablet twice a day for 7 days -- Dispense 14 tablet. Refills: 0.Substitution permitted.[facility] [address] [place] [address] [address] ; [place] [address]. . 2 Medication Reconciliation Report [facility] Emergency Department [address] [place] [address] Phone #: ext- [phone] 04/22/2020 14:52 Patient: JAQUELIN CUENCA Sex: F : 1995 Age: 24ygabapentin 100 mg capsule Take 1 capsule three times a day for 3 days -- Dispense 9 capsule. Refills:0. Substitution permitted.[facility] [phone] ; [place] [address]. FaxNumber: . -- Paul Bear P.A.-C Name Value Range Interpretation Code Description Data Salma rce(s) Supporting Document(s) ID Date Data Source [id number] 04/22/2020 03:06:00 PM EDT [facility] 1 Medication Administration Record [facility] Emergency Department [address] [place] [address] Phone #: ext- [phone] 04/22/2020 14:52 Patient: JAQUELIN CUENCA Sex: F : 1995 Age: 24yWeight: 63.0 kgHeight/Length: 60 inBMI: 27.1ALLERGIES: No Known Drug Allergy Date/Time Medication Administered Medication OrderedStart IV NS IV NS : Bolus 500 mL, then 7515:43 04/22/2020 Dose: IV Fluids mL/hrPMarce owens RCarlie Rate: 75 mL/hr---- Bolus: 500 mL wide openStop Dispensed: 1000 mL bag17:58 04/22/2020 Site: #1 right Lucero Moses R.N.Given ZOFRAN [IVP] (ONDANSETRON HCL) Zofran IVP 4 mg15:44 04/22/2020 Dose: 4 mg IVPPMarce owens R.N. Site: #1 right ACGiven BENADRYL [IVP] (DIPHENHYDRAMINE Benadryl IVP 25 mg15:45 04/22/2020 HCL)Marce Mcdonough R.N. Dose: 25 mg IVP In: NS 10 mL Site: #1 right AC Name Value Range Interpretation Code Description Data Salma rce(s) Supporting Document(s) ID Date Data Source [id number] 04/22/2020 03:06:00 PM EDT [facility] 1 General Instructions [facility] Emergency Department [address] [place] [address] Phone #: [phone] 04/22/2020 14:52 Patient: [facility] Hospitalt#: [id number] Sex: F : 1995 Age: 24yRight nephrolithiasis with urinary tract infection.Cholelithiasis. No obstruction or cholecystitis.Acute urinary tract infection with cystitis and hematuria.INSTRUCTIONSTake Tylenol (Acetaminophen) or Motrin (Ibuprofen) as needed for fever control. Take medicationaccording to label instructions.Drink plenty of fluids.(Recommend to utilize OTC Motrin and Tylenol to control inflammation and pain management.Recommend to follow the instructions on the bottle and not to exceed.).Warnings: Further evaluation is necessary.GENERAL WARNINGS: Return or contact your physician immediately if your condition worsens orchanges unexpectedly, if not improving as expected, or if other problems arise.Prescription Medications:Macrobid 100 mg capsule Take 1 capsule twice a day for 7 days -- Dispense 14 capsule. Refills: 0.Substitution permitted.[address] ; [place] [address]. .Flomax 0.4 mg capsule Take 1 capsule once a day for 14 days -- To help with expulsion of stone.recommend to take in the AM. Dispense 14 capsule. Refills: 0. Substitution permitted.[address] ; [place] [address]. .naproxen 500 mg tablet Take 1 tablet twice a day for 7 days -- Dispense 14 tablet. Refills: 0.Substitution permitted.[address] ; [place] [address]. FaxNumber: .gabapentin 100 mg capsule Take 1 capsule three times a day for 3 days -- Dispense 9 capsule. Refills:0. Substitution permitted.[address] ; [place] [address]. .Follow-up: 2 General Instructions [facility] Emergency Department [address] [place] [address] Phone #: ext- [phone] 04/22/2020 14:52 Patient: JAQULEIN CUENCA Sex: F : 1995 Age: 24yRetu rn to the emergency department as needed. Follow up with your healthcare provider in about twodays if not better. Call for an appointment. Follow up with a urologist- as recommended by your healthcare provider- Dr. Jesus Melgar, [facility].Understanding of the discharge instructions verbalized by patient.Follow-up with: [facility], , , [address] [place] [address], [facility] Follow up. Reason for referral: evaluation, treatment and To establish care.Follow-up with: [facility], , , [address] [place] [address], [facility]; [facility], , , [address] [place] [address], [facility] Follow up. Reason for referral: evaluation and treatment. ADDITIONAL INFORMATIONBladder Infection, Female (Adult)Urine is normally doesn't have any bacteria in it. But bacteria can get into the urinary tract from theskin around the rectum. Or they can travel in the blood from elsewhere in the body. Once they are inyour urinary tract, they can cause infection in the urethra (urethritis), the bladder (cystitis), or thekidneys (pyelonephritis).The most common place for an infection is in the bladder. This is called a bladder infection. This isone of the most common infections in women. Most bladder infections are easily treated. They are 3 General Instructions [facility] Emergency Department [address] [place] [address] Phone #: ext- [phone] 04/22/2020 14:52 Patient: JAQUELIN CUENCA Sex: Clari : 1995 Age: 24ynot serious unless the infection spreads to the kidney.The phrases "bladder infection," "UTI," and "cystitis" are often used to describe the same thing. Butthey are not always the same. Cystitis is an inflammation of the bladder. The most common cause ofcystitis is an infection.SymptomsThe infection causes inflammation in the urethra and bladder. This causes many of the symptoms.The most common symptoms of a bladder infection are: Pain or burning when urinating Having to urinate more often than usual Urgent need to urinate Only a small amount of urine comes out Blood in urine Abdominal discomfort. This is usually in the lower abdomen above the pubic bone. Cloudy urine Strong- or bad-smelling urine Unable to urinate (urinary retention) Unable to hold urine in (urinary incontinence) Fever Loss of appetite Confusion (in older adults)CausesBladder infections are not contagious. You can't get one from someone else, from a toilet seat, orfrom sharing a bath.The most common cause of bladder infections is bacteria from the bowels. The bacteria get onto theskin around the opening of the urethra. From there, they can get into the urine and travel up to thebladder, causing inflammation and infection. This usually happens because of: Wiping improperly after urinating. Always wipe from front to back. Bowel incontinence 4 General Instructions [facility] Emergency Department [address] [place] [address] Phone #: ext- [phone] 04/22/2020 14:52 Patient: JAQUELIN CUENCA Sex: F : 1995 Age: 24y Procedures such as having a catheter inserted Older age Not emptying your bladder. This can allow bacteria a chance to grow in your urine. Dehydration Constipation Sex Use of a diaphragm for controlTreatmentBladder infections are diagnosed by a urine test. They are treated with antibiotics and usually clear upquickly without complications. Treatment helps prevent a more serious kidney infection.MedicinesMedicines can help in the treatment of a bladder infection: Take antibiotics until they are used up, even if you feel better. It is important to finish them to make sure the infection has cleared. You can use acetaminophen or ibuprofen for pain, fever, or discomfort, unless another medicine was prescribed. If you have chronic liver or kidney disease, talk with your healthcare provider before using these medicines. Also talk with your provider if you've ever had a stomach ulcer or gastrointestinal bleeding, or are taking blood-thinner medicines. If you are given phenazopydridine to reduce burning with urination, it will cause your urine to become a bright orange color. This can stain clothing.Care and preventionThese self-care steps can help prevent future infections: Drink plenty of fluids to prevent dehydration and flush out your bladder. Do this unless you must restrict fluids for other health reasons, or your doctor told you not to. Proper cleaning after going to the bathroom is important. Wipe from front to back after using the toilet to prevent the spread of bacteria. Urinate more often. Don't try to hold urine in for a long time. 5 General Instructions [facility] Emergency Department [address] [place] [address] Phone #: ext- [phone] 04/22/2020 14:52 Patient: JAQUELIN CUENCA Sex: F : 1995 Age: 24y Wear loose-fitting clothes and cotton underwear. Avoid tight-fitting pants. Improve your diet and prevent constipation. Eat more fresh fruit and vegetables, and fiber, and less junk and fatty foods. Avoid sex until your symptoms are gone. Avoid caffeine, alcohol, and spicy foods. These can irritate your bladder. Urinate right after intercourse to flush out your bladder. If you use control pills and have frequent bladder infections, discuss it with your doctor.Follow-up careCall your healthcare provider if all symptoms are not gone after 3 days of treatment. This is especiallyimportant if you have repeat infections.If a culture was done, you will be told if your treatment needs to be changed. If directed, you cancall to find out the results.If X-rays were done, you will be told if the results will affect your treatment.Call 911Call 911 if any of the following occur: Trouble breathing Hard to wake up or confusion Fainting or loss of consciousness Rapid heart rateWhen to seek medical adviceCall your healthcare provider right away if any of these occur: Fever of 100.4F (38.0C) or higher, or as directed by your healthcare provider Symptoms are not better by the third day of treatment Back or belly (abdominal) pain that gets worse Repeated vomiting, or unable to keep medicine down Weakness or dizziness Vaginal discharge 6 General Instructions [facility] Emergency Department [address] [place] [address] Phone #: ext- [phone] 04/22/2020 14:52 Patient: JAQUELIN CUENCA Sex: F : 1995 Age: 24y Pain, redness, or swelling in the outer vaginal area (labia) 1304-7414 [employer]. [address] [place] [address], [place] [address]. All rights reserved. This information is not intended as asubstitute for professional medical care. Always follow your healthcare es jia's instructions.Male Bladder Infection (Child)A bladder infection is when bacteria cause the bladder to be inflamed. The bladder holds urine. Atube called the urethra takes urine from the bladder out of the body. Sometimes bacteria can travel upthe urethra. This causes the infection.The most common cause of bladder infections in children is bacteria from the bowels. The bacteriacan get onto the skin around the urethra, and then into the urine. From there it can travel up to thebladder. This can happen because of: Poor cleaning after using the toilet or during a diaper change Poor cleaning of the foreskin Not completely emptying the bladder Constipation that prevents the bladder from emptying completely Not drinking enough fluids to urinate often Irritation of the urethra from soaps or tight clothesSymptoms of a bladder infection include the need to urinate often and urgently. It may be painful. Theurine may have a strong smell. It may be dark, tinted with blood, or cloudy. Your child may not beable to hold urine and may wet the bed or clothes. Your child may also have a fever and belly pain.Some children don't have symptoms. A baby may be fussy and not able to be soothed. He or shemay cry when urinating. Your baby may also feed less or be less active.A bladder infection is treated with antibiotics. Your child's healthcare provider may also prescribe amedicine to treat pain. Children get better from a bladder infection quickly.In many cases a bladder infection will come back. It's important to take steps to prevent it (seebelow).Home careThe healthcare provider may prescribe medicine to treat the infection. Follow all instructions for givingthis medicine to your child. Use the medicine as instructed every day until it is gone. Don't stop givingit to your child if he feels better. Don't give your child aspirin unless you are told to by the healthcareprovider.For children ages 2 and up: If your child's healthcare provider says it's OK, you can give 7 General Instructions [facility] Emergency Department [address] [place] [address] Phone #: ext- [phone] 04/22/2020 14:52 Patient: JAQUELIN CUENCA Sex: F : 1995 Age: 24yacetaminophen or ibuprofen for pain, fever, fussiness, or discomfort. If your child has chronic liver orkidney disease, talk with the healthcare provider before giving these medicines. Also talk with yourprovider if your child has ever had a stomach ulcer or GI bleeding, or is taking blood thinners.General care Keep track of how often your child urinates. Note the urine color and amount. Tell your child to urinate often. Tell him to completely empty the bladder each time. This will help flush out bacteria. Have your child wear loose clothes and cotton underwear. Make sure that your child drinks enough fluids. Give your child cranberry juice if advised by the healthcare provider.Prevention Clean your child's penis every day. If he is uncircumcised, retract the foreskin when cleaning. Make sure diapers aren't tight. If you use cloth diapers, use cotton or wool protectors rather than nylon or rubber pants. Change soiled diapers right away. Make sure your child drinks plenty of fluids. Or, make sure your baby feeds often. This is to prevent dehydration. Make sure your child urinates when needed, and does not hold it in. Don't give your child bubble baths. They can irritate the urethra.Follow-up careFollow up with your child's healthcare provider, or as advised. If a culture was done, you will be told ofany new findings that may affect your child's care.Call [phone] if any of these occur: Trouble breathing Difficulty arousing Fainting or loss of consciousness Rapid heart rate 8 General Instructions [facility] Emergency Department [address] [place] [address] Phone #: ext- [phone] 04/22/2020 14:52 Patient: JAQUELIN CUENCA Sex: F : 1995 Age: 24y SeizureWhen to seek medical adviceCall your child's healthcare provider right away if any of these occur: Fever of 100.4F (38C) or higher, or as directed by your child's healthcare provider Symptoms don't get better after 24 hours of treatment Vomiting or inability to keep down medicine Pain gets worse Pain in the low back, belly, or side Foul-smelling urine Yellow tint to the skin or eyes (jaundice) 9561-9751 [employer]. [address] [place], [place] [address]. All rights reserved. This information is not intended as asubstitute for professional medical care. Always follow your healthcare professional's instructions.Kidney Stone with Pain 9 General Instructions [facility] Emergency Department [address] [place] [address] Phone #: ext- [phone] 04/22/2020 14:52 Patient: JAQUELIN CUENCA Sex: F : 1995 Age: 24yThe sharp cramping pain on either side of your lower back and nausea/vomiting that you have arebecause of a small stone that has formed in the kidney. It is now passing down a narrow tube (ureter)on its way to your bladder. Once the stone reaches your bladder, the pain will often stop. But it maycome back as the stone continues to pass out of the bladder and through the urethra. The stone maypass in your urine stream in one piece. The size may be 1/16 inch to 1/4 inch (1 mm to 6 mm). Or, thestone may break up into minerva fragments that you may not even notice.Once you have had a kidney stone, you are at risk of getting another one in the future. There are 4types of kidney stones. Eighty percent are calcium stones--mostly calcium oxalate but also somewith calcium phosphate. The other 3 types include uric acid stones, struvite stones (from a precedinginfection), and rarely, cystine stones.Most stones will pass on their own, but may take from a few hours to a few days. Sometimes thestone is too large to pass by itself. In that case, the healthcare provider will need to use other ways toremove the stone. These techniques include: Lithotripsy. This uses ultrasound waves to break up the stone. Ureteroscopy. This pushes a basket-like instrument through the urethra and bladder and into the ureter to pull out the stone. Various types of direct surgery through the skinHome careThe following are general care guidelines: Drink plenty of fluids. This means at least 12, 8- ounce glasses of fluid--mostly water--a day. Each time you urinate, do so in a jar. Pour the urine from the jar through the strainer and into the toilet. Continue doing this until 24 hours after your pain stops. By then, if there was a kidney stone, it should pass from your bladder. Some stones dissolve into sand-like particles and pass right through the strainer. In that case, you w on't ever see a stone. Save any stone that you find in the strainer and bring it to your healthcare provider to look at. It may be possible to stop certain types of stones from forming. For this reason, it is important to know what kind of stone you have. Try to stay as active as possible. This will help the stone pass. Don't stay in bed unless your pain keeps you from getting up. You may notice a red, pink, or brown color to your urine. This is normal while passing a kidney stone. If you develop pain, you may take ibuprofen or naproxen for pain, unless another medicine was prescribed. If you have chronic liver or kidney disease, talk with your healthcare provider before taking these medicines. Also talk with your provider if you've had a stomach ulcer or GI 10 General Instructions [facility] Emergency Department [address] [place] [address] Phone #: ext- [phone] 04/22/2020 14:52 Patient: JAQUELIN CUENCA Sex: F : 1995 Age: 24y bleeding.Preventing stonesEach year for the next 5 to 7 years, you are at risk that a new stone will form. Your risk is a 50%chance over this time period. The risk is higher if you have a family history of kidney stones or havecertain chronic illnesses like hypertension, obesity, or diabetes. But you can make changes to yourlifestyle and diet that can lower your risk for another stone.Most kidney stones are made of calcium. The following is advice for preventing another calciumstone. If you don't know the type of stone you have, follow this advice until the cause of your stone isfound.Things that help: The most important thing you can do is to drink plenty of fluids each day. See home care above. Eat foods that contain phytates. These include wheat, rice, rye, barley, and beans. Phytates are substances that may lower your risk for any type of stone to form. Eat more fruits and vegetables. Choose those that are high in potassium. Eat foods high in natural citrate like fruit and low-sugar fruit juices. Having too little calcium in your diet can put you at risk for calcium kidney stones. Eat a normal amount of calcium in your diet and talk with your healthcare provider if you are taking calcium supplements. Cutting back on your calcium intake may raise your risk. New research shows that eating calcium-rich and oxalate-rich foods together lowers your risk for stones by binding the minerals in the stomach and intestines before they can reach the kidneys. Limit salt intake to 2 grams (1 teaspoon) per day. Use limited amounts when cooking, and don't add salt at the table. Processed and canned foods are usually high in salt. Spinach, rhubarb, peanuts, cashews, almonds, grapefruit, and grapefruit juice are all high oxalate foods. You should limit how much of these you eat. Or eat them with calcium-rich foods. These include dairy products, dark leafy greens, soy products, and calcium-enriched foods. Reducing the amount of animal meat and high protein foods in your diet may lower your risk for uric acid stones. Avoid excess sugar (sucrose) and fructose (sweetener in many soft drinks) in your diet. If you take vitamin C as a supplement, don't take more than 1,000 mg a day. A dietitian or your healthcare provider can give you information about changes in your diet 11 General Instructions [facility] Emergency Department [address] [place] [address] Phone #: ext- [phone] 04/22/2020 14:52 Patient: JAQUELIN CUENCA Sex: F : 1995 Age: 24y that will help prevent more kidney stones from forming.Follow-up careFollow up with your healthcare provider, or as advised, if the pain lasts more than 48 hours. Talk withyour provider about urine and blood tests to find out the cause of your stone. If you had an X-ray, CTscan, or other diagnostic test, you will be told of any new findings that may affect your care.Call [phone] if you have any of these: Weakness, dizziness, or faintingWhen to seek medical adviceCall your healthcare provider right away if any of these occur: Pain that is not controlled by the medicine given Repeated vomiting or unable to keep down fluids Fever of 100.4F (38C) or higher, or as directed by your healthcare provider Passage of solid red or brown urine (can't see through it) or urine with lots of blood clots Foul-smelling or cloudy urine Unable to pass urine for 8 hours and in creasing bladder pressure [id number] [employer]. [address] [place] [address]. All rights reserved. This information is not intended as asubstitute for professional medical care. Always follow your healthcare professional's instructions.Kidney Stone, Undescended, No Symptoms 12 General Instructions [facility] Emergency Department [address] [place] [address] Phone #: ext- [phone] 04/22/2020 14:52 Patient: JAQUELIN CUENCA Sex: F : 1995 Age: 24yA kidney stone (nephrolithiasis) begins as tiny crystals that form inside the kidney where urine ismade. Most kidney stones enlarge to about 1/8 to 1/4 inch in size before leaving the kidney andmoving toward the bladder. There are 4 types of kidney stones. Eighty percent are calciumstones--mostly calcium oxalate but also some with calcium phosphate. The other 3 types include uricacid stones, struvite stones (from a preceding infection), and rarely, cystine stones.When the stone breaks free and begins to move down the ureter (the narrow tube joining the kidneyto the bladder) it often causes sharp back and side pain, often with nausea and vomiting. When thestone reaches the bladder, the pain stops. Once in your bladder, the kidney stone may pass throughthe urethra (urinary opening) while you are urinating (which may cause pain to start again). Or, it maybreak into such small fragments that you don't notice it passing.Your kidney stone is still inside the kidney. There is no way to predict how long it will be before itbreaks free and causes any symptoms. Most stones will pass on their own within a few hours to a fewdays (sometimes longer). You may notice a red, pink, or brown color to your urine. This is normalwhile passing a kidney stone. A large stone may not pass on its own and may require specialprocedures to remove it. These procedures include lithotripsy, which uses ultrasound waves to breakup the stone; ureteroscopy, which pushes a thin, basket-like instrument through the urethra andbladder and into the ureter to pull out the stone; and various types of direct surgery through the skin.Home careThe following guidelines will help you care for yourself at home: 13 General Instructions [facility] Emergency Department [address] [place] [address] Phone #: ext- [phone] 04/22/2020 14:52 Patient: JAQUELIN CUENCA Sex: F : 1995 Age: 24y Drink plenty of fluids. This increases urine flow and reduces the risk of further stone formation. Healthy adults (no heart/liver/kidney disease) who have had a kidney stone should drink 12, 8-ounce glasses of fluids per day. Most of this should be water. The goal is to produce 1.5 to 2 quarts of almost colorless urine per 24 hours. You should collect your urine in a container and then drain it through a strainer to collect any stones or pieces of stones. Take these to your healthcare provider to help identify your specific type of stone to aid in future treatment and dietary changes. Try to stay as active as possible since this will help the stone pass. Don't stay in bed unless you have pain that prevents you from getting up. If you develop pain, you may take ibuprofen or naproxen for pain, unless another medicine was prescribed. If you have chronic liver or kidney disease or ever had a stomach ulcer or GI bleeding, talk with your healthcare provider before using these medicines.PreventionEach year, there is a 5% to 10% chance that a new stone will form (50% chance over the next 5 to 7years). The risk is higher if you have a family history of kidney stones or have certain chronicillnesses such as hypertension, obesity, or diabetes. However, there are lifestyle and dietary changesthat you can make to reduce the risk of a recurrence.Most kidney stones are made of calcium. The following is advice for preventing a recurrence ofcalcium stones. If you don't know the type of stone you have, follow this advice until the cause ofyour stone is determined.Things that help: The most important thing you can do is to drink plenty of fluids each day, as described above. Certain foods, such as wheat, rice, rye, barley and beans, contain phytate, a compound that may lower the risk of recurrence of any type of stone. Eat more fruits and vegetables (especially those high in potassium). Eat foods high in natural citrate like fruit and fruit juices (using low sugar). Low calcium contributes to the formation of calcium type kidney stones. Eat a normal calcium diet and speak with your doctor if you are taking calcium supplements. It may be detrimental to reduce your calcium intake. New research shows that eating calcium-rich and oxalate-rich foods together lowers your risk of stones by binding the minerals in the stomach and intestines before they can reach the kidneys. Limit salt intake to 2 grams (1 teaspoon) per day. Use limited amounts when cooking, and 14 General Instructions [facility] Emergency Department [address] [place] [address] Phone #: ext- [phone] 04/22/2020 14:52 Patient: JAQUELIN CUENCA Sex: F : 1995 Age: 24y don't add salt at the table. Processed and canned foods are usually high in salt. Spinach, rhubarb, peanuts, cashews and almonds, grapefruit and grapefruit juice are all high oxalate foods and should be reduced, or eaten with calcium rich foods. These foods include dairy, dark leafy greens, soy products, and calcium enriched foods. Reducing the amount of animal meat in your diet may lower your risk of uric acid stones. Don't have excess sugar (sucrose) and fructose (sweetener in many soft drinks) in your diet. If you take vitamin C as a supplement, do not take more than 1,000 milligrams (mg) per day. A dietitian or your healthcare provider can provide you with specific details about dietary changes to prevent kidney stone recurrence.Follow-up careFollow up with your healthcare provider, or as advised. Talk with your healthcare provider about urineand blood tests to find out the cause of your stone.If you had an X-ray, CT scan, or other diagnostic test, you will be notified of any findings that mayaffect your care.Call [phone] if you have any of these: Weakness, dizziness, or faintingWhen to seek medical adviceCall your healthcare provider right away if any of the these occur: Severe sharp back or side pain Repeated vomiting or unable to keep down fluids Fever of 100.4F (38C) or higher, or as directed by your health care provider Blood (pink or red color) in your urine Foul smelling or cloudy urine Unable to pass urine for 8 hours or increasing bladder pressure [id number] [employer]. [address] [place] [address], [place] [address]. All rights reserved. This information is not intended as asubstitute for professional medical care. Always follow your healthcare professional's instructions. 15 General Instructions [facility] Emergency Department [address] [place] [address] Phone #: ext- [phone] 04/22/2020 14:52 Patient: JAQUELIN CUENCA Sex: F : 1995 Age: 24yBladder Infection, Female (Adult)Urine is normally doesn't have any bacteria in it. But bacteria can get into the urinary tract from theskin around the rectum. Or they can travel in the blood from elsewhere in the body. Once they are inyour urinary tract, they can cause infection in the urethra (urethritis), the bladder (cystitis), or thekidneys (pyelonephritis).The most common place for an infection is in the bladder. This is called a bladder infection. This isone of the most common infections in women. Most bladder infections are easily treated. They arenot serious unless the infection spreads to the kidney.The phrases "bladder infection," "UTI," and "cystitis" are often used to describe the same thing. Butthey are not always the same. Cystitis is an inflammation of the bladder. The most common cause ofcystitis is an infection.SymptomsThe infection causes inflammation in the urethra and bladder. This causes many of the symptoms.The most common symptoms of a bladder infection are: Pain or burning when urinating Having to urinate more often than usual Urgent need to urinate Only a small amount of urine comes out 16 General Instructions [facility] Emergency Department [address] [place], [place] [id number] Phone #: ext- [phone] 04/22/2020 14:52 Patient: JAQUELIN CUENCA Sex: F : 1995 Age: 24y Blood in urine Abdominal discomfort. This is usually in the lower abdomen above the pubic bone. Cloudy urine Strong- or bad-smelling urine Unable to urinate (urinary retention) Unable to hold urine in (urinary incontinence) Fever Loss of appetite Confusion (in older adults)CausesBladder infections are not contagious. You can't get one from someone else, from a toilet seat, orfrom sharing a bath.The most common cause of bladder infections is bacteria from the bowels. The bacteria get onto theskin around the opening of the urethra. From there, they can get into the urine and travel up to thebladder, causing inflammation and infection. This usually happens because of: Wiping improperly after urinating. Always wipe from front to back. Bowel incontinence Procedures such as having a catheter inserted Older age Not emptying your bladder. This can allow bacteria a chance to grow in your urine. Dehydration Constipation Sex Use of a diaphragm for controlTreatmentBladder infections are diagnosed by a urine test. They are treated with antibiotics and usually clear up 17 General Instructions [facility] Emergency Department [address] [place] [address] Phone #: ext- [phone] 04/22/2020 14:52 Patient: JAQUELIN CUENCA Sex: F : 1995 Age: 24yquickly without complications. Treatment helps prevent a more serious kidney infection.MedicinesMedicines can help in the treatment of a bladder infection: Take antibiotics until they are used up, even if you feel better. It is important to finish them to make sure the infection has cleared. You can use acetaminophen or ibuprofen for pain, fever, or discomfort, unless another medicine was prescribed. If you have chronic liver or kidney disease, talk with your healthcare provider before using these medicines. Also talk with your provider if you've ever had a stomach ulcer or gastrointestinal bleeding, or are taking blood-thinner medicines. If you are given phenazopydridine to reduce burning with urination, it will cause your urine to become a bright orange color. This can stain clothing.Care and preventionThese self-care steps can help prevent future infections: Drink plenty of fluids to prevent dehydration and flush out your bladder. Do this unless you must restrict fluids for other health reasons, or your doctor told you not to. Proper cleaning after going to the bathroom is important. Wipe from front to back after using the toilet to prevent the spread of bacteria. Urinate more often. Don't try to hold urine in for a long time. Wear loose-fitting clothes and cotton underwear. Avoid tight-fitting pants. Improve your diet and prevent constipation. Eat more fresh fruit and vegetables, and fiber, and less junk and fatty foods. Avoid sex until your symptoms are gone. Avoid caffeine, alcohol, and spicy foods. These can irritate your bladder. Urinate right after intercourse to flush out your bladder. If you use control pills and have frequent bladder infections, discuss it with your doctor.Follow-up careCall your healthcare provider if all symptoms are not gone after 3 days of treatment. This is especiallyimportant if you have repeat infections.If a culture was done, you will be told if your treatment needs to be changed. If directed, you can 18 General Instructions [facility] Emergency Department [address] [place] [address] Phone #: ext- [phone] 04/22/2020 14:52 Patient: JAQUELIN CUENCA Sex: F : 1995 Age: 24ycall to find out the results.If X-rays were done, you will be told if the results will affect your treatment.Call [phone] if any of the following occur: Trouble breathing Hard to wake up or confusion Fainting or loss of consciousness Rapid heart rateWhen to seek medical adviceCall your healthcare provider right away if any of these occur: Fever of 100.4F (38.0C) or higher, or as directed by your healthcare provider Symptoms are not better by the third day of treatment Back or belly (abdominal) pain that gets worse Repeated vomiting, or unable to keep medicine down Weakness or dizziness Vaginal discharge Pain, redness, or swelling in the outer vaginal area (labia) [id number] [employer]. [address] [place] [address]. All rights reserved. This information is not intended as asubstitute for professional medical care. Always follow your healthcare professional's instructions.Blood in the Urine 19 General Instructions [facility] Emergency Department [address] [place] [address] Phone #: ext- [phone] 04/22/2020 14:52 Patient: JAQUELIN CUENCA Sex: F : 1995 Age: 24yBlood in the urine (hematuria) has many possible causes. If it occurs after an injury (such as a caraccident or fall), it is most often a sign of bruising to the kidney or bladder. Common causes of bloodin the urine include urinary tract infections, kidney stones, inflammation, tumors, or certain otherdiseases of the kidney or bladder. Menstruation can cause blood to appear in the urine sample,although it is not coming from the urinary tract.If only a trace amount of blood is present, it will show up on the urine test, even though the urine maybe yellow and not pink or red. This may occur with any of the above conditions, as well as heavyexercise or high fever. In this case, your doctor may want to repeat the urine test on another day. Thiswill show if the blood is still present. If it is, then other tests can be done to find out the cause.Home careFollow these home care guidelines: If your urine does not appear bloody (pink, brown or red) then you do not need to restrict your activity in any way. If you can see blood in your urine, rest and avoid heavy exertion until your next exam. Do not use aspirin, blood thinners, or anti-platelet or anti- inflammatory medicines. These include ibuprofen and naproxen. These thin the blood and may increase bleeding.Follow-up careFollow up with your healthcare provider, or as advised. If you were injured and had blood in your 20 General Instructions [facility] Emergency Department [address] [place] [address] Phone #: [phone]- [phone] 04/22/2020 14:52 Patient: JAQUELIN CUENCA Sex: F : 1995 Age: 24yurine, you should have a repeat urine test in 1 to 2 days. Contact your doctor for this test.A radiologist will review any X-rays that were taken. You will be told of any new findings that mayaffect your care.When to seek medical adviceCall your healthcare provider right away if any of these occur: Bright red blood or blood clots in the urine (if you did not have this before) Weakness, dizziness or fainting New groin, abdominal, or back pain Fever of 100.4F (38C) or higher, or as directed by your healthcare provider Repeated vomiting Bleeding from the nose or gums or easy bruising [id number] [employer]. [address] [place] [address]. All rights reserved. This information is not intended as asubstitute for professional medical care. Always follow your healthcare prof essional's instructions.Gallstones with Biliary ColicYour abdominal pain due to irritation and spasm of the gallbladder. This is called biliary colic. Thegallbladder is a small sac under the liver, which stores and releases a bile. Bile is a fluid made in theliver that aids in the digestion of fat. A collection of crystals may form stones inside the gallbladder(gallstones). Gallstones can cause the gallbladder to spasm. If they block the duct out of the 21 General Instructions [facility] Emergency Department [address] [place] [address] Phone #: ext- [phone] 04/22/2020 14:52 Patient: JAQUELIN CUENCA Sex: F : 1995 Age: 24ygallbladder, they can cause pain and even an infection.A number of factors increase the risk for having gallstones: Being female Being severely overweight (obese) Older age Losing or gaining weight quickly Eating a high-calorie diet Being Taking hormone therapy Having diabetesHome care Rest in bed. Drink only clear liquids until you feel better. You may have been prescribed medicine for pain or nausea. Take these as directed. Fat in your diet makes the gallbladder contract and may cause increased pain. Don't eat foods that are high in fat (such as full-fat dairy, fried foods, and fatty meats) for at least 2 days. If you are overweight, talk to your healthcare provider about losing weight.Follow-up careFollow up with your healthcare provider or as advised. There is a chance that you will have anotherepisode of pain from your gallstones at some point. Removal of the gallbladder is an option to preventthis. Talk with your healthcare provider about your treatment options.When to seek medical adviceCall your healthcare provider if any of the following occur: Worsening pain or pain lasting for longer than 6 hours Pain moving to the right lower belly Repeated vomiting Swollen belly 22 General Instructions [facility] Emergency Department [address] [place] [address] Phone #: ext- [phone] 04/22/2020 14:52 - Patient: JAQUELIN CUENCA Sex: F : 1995 Age: 24y Fever of 100.4F (38C) or higher, or as directed by your healthcare provider Very dark urine, light colored stools, or yellow color of the skin or eyes Chest, arm, back, neck or jaw pain 1999- 2017 [employer]. [address] [place] [address]. All rights reserved. This information is not intended as asubstitute for professional medical care. Always follow your healthcare professional's instructions. You have been given the following additional information: Bladder Infection, Female (Adult) Bladder Infection (Cystitis), Male (Child) Kidney Stone w/ Colic Kidney Stone, Undescended (No Symptoms) Bladder Infection, Female (Adult) Hematuria Gallstones with Biliary Colic(Electronically signed by Rc Bear P.A.-C 04/23/2020 12:13) Name Value Range Interpretation Code Description Data Salma rce(s) Supporting Document(s) ID Date Data Source [id number] 04/22/2020 03:06:00 PM EDT [facility] 1 Clinical Report - Nurses [facility] Emergency Department [address] [place] [address] Phone #: ext- [phone] 04/22/2020 14:52 Patient: JAQUELIN CUENCA Sex: F : 1995 Age: 24yTRIAGEArrived by private vehicle. Historian: patient. Accompanied by spouse.Triage time: late entry - 14:50 04/22/2020. Acuity: LEVEL 3.Chief Complaint: PAINFUL URINATION and URINARY FREQUENCY and URGENCY.Alert. No acute distress.Onset. (3 days ago). ( Pt states in January she was seen in this ED for nephrolithias, and has not hadsymptoms since then. Pt states 3 days ago she started having urgency and feels as if there is somethingblocking her urethra and has irritation.). No nausea, vomiting or fever.Treatment BEER [facility]NER:(Hydrocodone last dose 2 days ago;).SEPSIS SCREEN: SIRS Screen negative. Sepsis Screen negative. No suspected or confirmed signs ofinfection present. (15:00 09/2019). --15:00 04/22/20 Marce Mcdonough R.N.14:55 04/22/20. BP: 129/93. MAP: 105. HR: 79. RR: 18. O2 saturation: 99% on room air. Temp: 98.4 F(oral). Pain level now: 08/30. --15:00 04/22/20 Marce Mcdonough R.N.Weight: 63 kg stated. Height/Length: 60 inches Per Patient. BMI: 27.1. --14:55 04/22/20 Marce Mcdonough R.N.MedicationsBirth Control Pills 1 pill, daily. --14:58 04/22/20 Marce Mcdonough R.N.AllergiesNo Known Drug Allergy. --14:58 04/22/20 Marce Mcdonough R.N.Medication/allergy information source: the patient. --15:00 04/22/20 Marce Mcdonough R.N.HistoryPAST MEDICAL HX: Immunizations: up-to-date. Last normal menstrual period now.SOCIAL HX: Never smoker. No alcohol use or drug use. No recent travel. No known contact with a sickindividual. She was offered HIV testing but declined. Patient education was provided. She was offeredhepatitis C testing but declined. Patient education was provided. ( COVID screen negative). She has nottraveled outside the [place]Infectious disease exposure: No infectious disease exposure. Patient is not a known carrier of tuberculosis,hepatitis, HIV, MRSA or VRE. Patient is not a known carrier of CRE.SELF HARM ASSESSMENT: Self harm assessment was performed. The patient answered "no" to the 2 Clinical Report - Nurses [facility] Emergency Department [address] [place] [address] Phone #: [phone] ext- [phone] 04/22/2020 14:52 Patient: JAQUELIN CUENCA Sex: F : 1995 Age: 24y question(s) "Do you have thoughts of harming or killing yourself?" and "Do you have a plan for harming or killing yourself?". ABUSE ASSESSMENT: Abuse assessment. The patient had positive responses to the question(s) "Do you feel safe in your home?". Abuse denied. No suspicion of abuse. No report of abuse. NUTRITIONAL RISK ASSESSMENT: The nutritional risk assessment revealed no deficiencies. FUNCTIONAL ASSESSMENT: Functional assessment: no impairments noted. LEARNING NEEDS ASSESSMENT: The learning needs assessment revealed no barriers. FALL RISK ASSESSMENT: Fall risk assessment completed. No risk factors identified. SKIN INTEGRITY ASSESSMENT: Skin integrity risk assessment completed. No skin integrity risk identified. --15:00 04/22/20 Marce Mdconough R.N. Interventions Identification band on patient. --15:00 04/22/20 Marce Mcdonough R.N.PHYSICAL ASSESSMENTAmbulatory to room.GENERAL / NEURO / PSYCH: Alert. Oriented X 4. Appears in no acute distress.HEENT: Mucous membranes are pink.RESPIRATORY: Respirations not labored. Breath sounds within normal limits.CVS: Capillary refill less than 2 seconds.GI / : Abdomen nontender. Bowel sounds within normal limits. No nausea noted. No emesis noted.No CVA tenderness. ( pt c/o urinary frequency/urgency).SKIN: Skin is warm and dry. --15:01 04/22/20 Marce Mcdonough R.N.NURSING PROGRESS NOTESNIBP monitor and pulse oximeter placed on patient; monitor alarms on. Patient gowned. Reassurancegiven. Three patient identifiers checked. Call light placed in reach. Side rails up x 2. Bed placed inlowest position. Brakes of bed on. Patient ready for evaluation- ED physician and PA notified. --15: Marce Mcdonough R.N. Patient ID band checked for patient name and birthdate: patient confirmed. Instructions provided to collect clean catch urine and patient ve rbalized understanding. Clean catch urine collected; sample sent to lab for urinalysis. Specimen labeled in the presence of the patient. --15:01 04/22/20 Marce Mcdonough R.N. 15:05 04/22/2020 Site #1 started via IV in the right antecubital space with an 20g angiocath, with aseptic technique and good blood return; one attempt. Blood drawn: rainbow set. Labeled in the presence of the patient and sent to the lab. Saline lock flushed with 10 mL saline. --15:08 04/22/20 Marce Mcdonough R.N. 3 Clinical Report - Nurses [facility] Emergency Department [address] [place] [address] Phone #: ext- [phone] 04/22/2020 14:52 Patient: JAQUELIN CUENCA Sex: F : 1995 Age: 24y15:41 04/22/20. BP: 99/70. HR: 68. RR: 18. O2 saturation: 100%. --15:42 04/22/20 Marce Mcdonough R.N.15:43 04/22/2020 Started bag #1 1000 mL IV Fluids IV NS; bolus of 500 mL wide open then at 75 mL/hrvia site #1 via IV pump. Allergies verified and confirmed 5 rights. IV patency established. IV site checked:no pain, redness, or swelling. IV flushed thoroughly pre- and post-medication administration. Informationreviewed with patient including reason for taking this medication, signs of allergic reaction and precautions.Verbalizes understanding. --15:43 04/22/20 Marce Mcdonough R.N.15:44 04/22/2020 Zofran (Ondansetron HCl) IVP 4 mg given over 2 minute(s) via site #1. Allergies verifiedand confirmed 5 rights. IV patency established. IV site checked: no pain, redness, or swelling. IV flushedthoroughly pre- and post-medication administration. IVP given by RN. Information reviewed with patientincluding reason for taking this medication, signs of allergic reaction and precautions. Verbalizesunderstanding. --15:44 04/22/20 Marce Mcdonough R.N.15:45 04/22/2020 Benadryl (diphenhydrAMINE HCl) IVP 25 mg given diluted in NS 10mL over 5 minute(s)via site #1. Allergies verified and confirmed 5 rights. IV patency established. IV site checked: no pain,redness, or swelling. IV flushed thoroughly pre- and post-medication administration. IVP given by RN.Information reviewed with patient including reason for taking this medication, signs of allergic reaction,precautions and sedative warning. Verbalizes understanding. --15:45 04/22/20 Marce Mcdonough R.N.Reassessment acuity: LEVEL 3.Rounding: Pain: assessed pain level. Position: states comfortable. Proximity of possessions / care items:call light within easy reach. Plug ins: assured IV pump plugged in; checked status of equipment in use;located all cords, tubes, and lines to prevent fall hazard. Set expectations: advised patient of roundingprotocol timing and asked if they needed anything else at this time. The patient reports no complaints andshe is calm and resting quietly. --15:46 04/22/20 Marce Mcdonough R.N.Reassessment acuity: LEVEL 3.Rounding: Pain: assessed pain level. Position: states comfortable. Proximity of possessions / care items:call light within easy reach. Plug ins: assured IV pump plugged in; checked status of equipment in use;located all cords, tubes, and lines to prevent fall hazard. Set expectations: advised patient of roundingprotocol timing and asked if they needed anything else at this time. Reassessment after medicationadministered. Pain still present but improving. She reports no complaints and she is calm and restingquietly. Overall patient status is improved- she states feels better. [facility] [place] [facility]. --16:45 04/22/20 Marce Mcdonough R.N.16:45 04/22/2020 Zofran IVP Response: no adverse reaction symptoms have improved the patient feelsbetter. --16:45 04/22/20 Marce Mcdonough R.N.16:46 04/22/2020 Benadryl IVP Response: no adverse reaction symptoms have improved the patient feelsbetter. --16:46 04/22/20 Marce Mcdonough R.N. 4 Clinical Report - Nurses [facility] Emergency Department [address] [place] [address] Phone #: ext- [phone] 04/22/2020 14:52 Patient: JAQUELIN CUENCA Sex: F : 1995 Age: 24y Patient returned from CT by wheelchair with radiology equipment servicer. --16:56 04/22/20 Marce Mcdonough R.N.DISPOSITION / DISCHARGE 18:02 04/22/20. BP: 100/68. HR: 70. RR: 17. O2 saturation: 99%. Temp: 98.4 F. Pain level now 0/10. --18:03 04/22/20 [facility] Tech, Carl, Tech1 17:58 04/22/2020 IV Fluids IV NS via IV site #1 Discontinued: bag #1 discontinued upon discharge. Total amount infused: 355ml mL. IV patency established. IV site checked: no pain, redness, or swelling. IV flushed thoroughly. --18:13 04/22/20 Lucero Savage R.N. 18:07 04/22/2020 Site #1 removed upon discharge. Catheter intact. Bandaid applied. --18:12 04/22/20 Lucero Savage R.N. late entry - 18:08 04/22/20. Departure time: late entry - 18:04/22/2020. Condition at departure: improved. No learning barriers present. Discharge instructions provided and reviewed with the patient. Reviewed medication(s). Prescription(s) sent electronically to pharmacy (macrobid, flomax, naproxen, gabapentin). Reviewed referral to a surgeon, urologist and primary care physician for followup. Patient verbalized understanding. Written instructions provided in Croatian. The patient was discharged by the physician miller head assistant wet process. She was discharged home and accompanied by spouse. She left ambulatory and via private vehicle. Spouse driving. --18:12 04/22/20 Lucero Savage R.N.Locked/Released at 04/22/2020 18:13 by Lucero Savage R.N. Name Value Range Interpretation Code Description Data Salma rce(s) Supporting Document(s) ID Date Data Source [id number] 04/22/2020 03:06:00 PM EDT [facility] 1 Clinical Report - Physicians/Mid Levels [facility] Emergency Department [address] [place] [address] Phone #: ext- [phone] 04/22/2020 14:52 Patient: JAQUELIN CUENCA Sex: F : 1995 Age: 24y Time Seen: 15:15 04/22/2020; initial patient contact, initial documentation. Arrived- By private vehicle. Historian- patient.HISTORY OF PRESENT ILLNESS Chief Complaint: DYSURIA. This started about 3 days ago and still present. The symptoms are described as mild. The patient has had mild abdominal pain. The pain is described as located in the suprapubic region. She has had pain with urination and urgency of urination. The patient has had urinary frequency. (Pt presents with urincary complaints that are simialr to previous renal stone.). Similar symptoms previously. Patient has had similar symptoms once. Recent medical care: Not recently seen/assessed.REVIEW OF SYSTEMSNo nausea, vomiting, diarrhea, black stools or headache. No fever, chills, anorexia, eye discomfort orsore throat. No cough, difficulty breathing, chest pain, skin rash or enlarged lymph nodes. All othersystems reviewed and are negative.PAST HISTORYSee nurses notes. Problems: HPV. HSV 2. Cholelithiasis. UTI - Urinary Tract Infection. Nephrolithiasis. Medications: Control Pills 1 pill, daily. Allergies: No Known Drug Allergy.SOCIAL HISTORYNever smoker. No alcohol use or drug use.ADDITIONAL NOTESThe nursing notes have been reviewed. 2 Clinical Report - Physicians/Mid Levels [facility] Emergency Department [address] [place] [address] Phone #: ext- [phone] 04/22/2020 14:52 Patient: JAQUELIN CUENCA Sex: F : 1995 Age: 24yPHYSICAL EXAMVital Signs: 04/22/2020 14:55 BP: 129/93. MAP: 105. HR: 79. RR: 18. O2 saturation: 99% on room air.Temp: 98.4 F. Pain level now: 08/30. Have been reviewed.Appearance: Alert. Oriented X3. No acute distress.CVS: Normal heart rate and rhythm. No JVD present. Pulses normal. Capillary refill normal. Strongperipheral pulses. Heart sounds normal. Pulses: right radial 2+; left radial 2+; right dorsalis pedis 2+; leftdorsalis pedis 2+; right posterior tibial 2+; left posterior tibial 2+.Respiratory: Chest normal on inspection. No respiratory distress. Unlabored respirations. Lungs clear.Good chest movement. Breath sounds normal and equal.Abdomen: Normal inspection. Soft and nontender. Bowel sounds normal. No distention.Skin: Skin warm and dry.Extremities: No lower extremity edema. Extremities nontender. No calf tenderness. No lower extremityedema.Neuro: Awake. Alert. Mood/affect normal. Speech normal. No motor deficit. No sensory deficit.Psych: Cognition normal. Thought process and content normal. Insight and judgement normal.LABS, X-RAYS, AND EKGCT Abdomen - Pelvis: Santos mckeon Neal - 04/22/2020 5:21:02 PM2mm non obs r kidney stone.gallstones. The study was interpreted by the radiologist.Laboratory Tests: CBC w Diff: (PATRIZIA: 04/22/2020 15:20) ( MsgRcvd 04/22/2020 15:49) Final results Test Result Flag Units (Reference) CBC W/AUTOMATED DIFF COMPLETE BLOOD COUNT WBC 8.4 10/uL (4.2 - 11.0) RBC 4.50 10/uL (4.20 - 5.40) HEMOGLOBIN 13.3 g/dL (12.0 - 16.0) HEMATOCRIT 40.4 % (37.0 - 47.0) MCV 89.8 fL (81.0 - 101) MCH 29.6 pg (27.0 - 34.0) MCHC 32.9 g/dL (31.0 - 36.0) RDW 11.9 % (11.5 - 14.5) PLATELETS 207 10/uL (150 - 450) MPV 11.6 H fL (7.4 - 10.4) NEUT 64.1 % (37.0 - 80.0) LYMPH 26.3 % (25.0 - 40.0) MONO 6.7 % (3.0 - 8.0) EOS 2.0 % (0.0 - 7.0) BASO 0.5 % (0.0 - 2.5) %IG 0.4 H % (0.0 - 0.0) %NRBC 0.0 % (0.0 - 0.0) #NEUT 5.39 10/uL (2.00 - 6.90) #LYMPH 2.21 10/uL (0.60 - 3.40) #MONO 0.56 10/uL (0.00 - 0.90) #EOS 0.17 10/uL (0.00 - 0.70) #BASO 0.04 10/uL (0.00 - 0.20) #IG 0.03 10/uL (0.00 - 0.10) #NRBC 0.00 10/uL (0.00 - 0.00) MANUAL DIFF NOT INDICATED 3 Clinical Report - Physicians/Mid Levels [facility] Emergency Department [address] [place] [address] Phone #: ext- [phone] 04/22/2020 14:52 [id number] Sex[facility] F : 1995 Age: 24y RBC MORPH NOT INDICATEDCMP: (PATRIZIA: 04/22/2020 15:20) ( MsgRcvd 04/22/2020 16:46) Final results Test Result Flag Units (Reference) COMPREHENSIVE METABOLIC PANEL COMPREHENSIVE METABOLIC PANEL SODIUM 139 mEq/L (134 - 153) POTASSIUM 3.9 mEq/L (3.6 - 5.0) CHLORIDE 103 mEq/L (98 - 107) CO2 26 MEQ/L (22 - 30) GLUCOSE 78 MG/DL (65 - 110) BUN 9 MG/DL (7 - 21) CREATININE 0.8 MG/DL (0.7 - 1.5) BUN/CREAT 11 (8 - 27) TOTAL PROTEIN 7.1 G/DL (6.3 - 8.2) ALBUMIN 4.3 G/DL (3.9 - 5.0) GLOBULIN 2.8 GM/DL (2.4 - 3.2) A/G RATIO 1.5 (0.8 - 2.0) CALCIUM 9.4 MG/DL (8.4 - 10.2) TOTAL BILI <0.7 MG/DL (0.2 - 1.3) ALKALINE PHOS 68 U/L (38 - 126) SGOT/AST 16 U/L (5 - 40) SGPT/ALT 9 U/L (7 - 56) ANION GAP 10.0 mmol/L (8.0 - 16.0) AGE 24 yrs NON-AA GFR >60 mL/min AFR AMER GFR >60 mL/min Male GFR Interprentation 20-49 yrs >60 mL/min Yqxvot93-86 yrs >56 mL/min Normal 60-69 yrs >49 mL/min Normal 70-79yrs>42 mL/min Normal 80 and above >35 mL/min Normal Female GFRInterpretation 20-39 yrs >60 mL/min Normal 40-49 yrs >58 mL/minNormal 50-59 yrs >51 mL/min Normal 60-69 yrs >45 mL/min Yunbep40-39 yrs >39 mL/min Normal 80 and above >32 mL/min NormalLipase: (PATRIZIA: 04/22/2020 15:20) ( [facility] 04/22/2020 16:38) Final results Test Result Flag Units (Reference) LIPASE 34 U/L (13 - 60)Beta-HCG, Qual Serum: (PATRIZIA: 04/22/2020 15:20) ( [facility] 04/22/2020 16:27) Final results Test Result Flag Units (Reference) HCG SERUM QUAL NEGATIVE (NORMAL: NEGAT HCG SERUM QL REENTER NEGATIVE (NORMAL: NEGAT { KIT LOT # [id number] ){ KIT EXP AVDE62-21-53 ){ PROCEDURAL CONTROL VALID)Urinalysis: (PATRIZIA: 04/22/2020 15:08) ( [facility] 04/22/2020 16:12) Final results Test Result Flag Units (Reference) URINALYSIS URINALYSIS SOURCE Clean Catch COLOR yellow (NORMAL: Yello CLARITY cloudy (NORMAL: Clear SPEC GRAVITY 1.010 (1.001 - 1.030 4 Clinical Report - Physicians/M id Levels [facility] Emergency Department [address] [place] [address] Phone #: ext- [phone] 04/22/2020 14:52 Patient: JAQUELIN CUENCA Sex: F : 1995 Age: 24y pH 8 (5 - 9) GLUCOSE NORM (NORMAL: Negat BILIRUBIN NEG (NORMAL: Negat KETONE NEG (NORMAL: Negat PROTEIN 100 A (NORMAL: Negat NITRITE NEG (NORMAL: Negat BLOOD 250 A (NORMAL: Negat LEUK EST 500 A (NORMAL: Negat UROBILINOGEN 1 (less than 1.0 MICROSCOPIC See Below WBC 30 - 40 A (NORMAL: NONE RBC TNTC A (NORMAL: NONE EPITHELIAL FEW (NORMAL: NONE BACTERIA Trace (NORMAL: NONE MUCOUS Trace (NORMAL: NONE.PROGRESS AND PROCEDURESCourse of Care: VSS, NAD, AOx3, interacting well and appropriately, no use of accessory muscle, able tospeak full sentences, stable, non-toxic looking. Enter room and pt lying peacefully in bed in NAD. Patient stable. Denies any new issues, concerns, or complaints. Pt had urinary complaints of F/U/D. Pt had stone in past; unsure if she passed. Possible same stone, posibble growth, possible new stone. DEVANG BENNETT itnact b/l UE and LE. Will obtain labs and imaigng for selin vuong. Pending restuls. Reviewed results. Noted same findings as last a few months ago. Enter room and patient lying peacefully in bed in NAD. Patient stable. Denies any new issues, concerns, or complaints. Pt sts that she had not done anything to iclude f/u with specilists after last ER vist. informed findings smae and will continue if she does not see specialist (GI and Urology). Provided contact info. Discussed results with pt. Discussed tx plan with pt. Discussed and counseled on stable condition. Discussed importance of a f/u with PCP. Discussed return to ER criteria. Answered their questions. Indicates and verbalizes that they understand, agree, and will comply with above. Denies any new questions or concerns. Patient has capacity to understand. Discharge decision based on the following: patient's condition is stable; patient's exam is stable; social support is adequate; transportation is available; follow-up is available. Discussed of OTC Motrin and Tylenol to control inflammation and pain management. Informed to follow directions on bottle that are appropriate for age and/or weight. 5 Clinical Report - Physicians/Mid Levels [facility] Emergency Department [address] [place] [address] Phone #: ext- [phone] 04/22/2020 14:52 [id number] Sex[facility] F : 1995 Age: 24y Disposition: Discharged home in good and improved condition. Condition: good and stable.CLINICAL IMPRESSION Right nephrolithiasis with urinary tract infection. Cholelithiasis. No obstruction or cholecystitis. Acute urinary tract infection with cystitis and hematuria.INSTRUCTIONS Take Tylenol (Acetaminophen) or Motrin (Ibuprofen) as needed for fever control. Take medication according to label instructions. Drink plenty of fluids. (Recommend to utilize OTC Motrin and Tylenol to control inflammation and pain management. Recommend to follow the instructions on the bottle and not to exceed.). Warnings: Further evaluation is necessary. GENERAL WARNINGS: Return or contact your physician immediately if your condition worsens or changes unexpectedly, if not improving as expected, or if other problems arise. Prescription Medications: Macrobid 100 mg capsule Take 1 capsule twice a day for 7 days -- Dispense 14 capsule. Refills: 0. Substitution permitted. [facility] [address] [place] [address] [address] ; [place] [address]. . Flomax 0.4 mg capsule Take 1 capsule once a day for 14 days -- To help with expulsion of stone. recommend to take in the AM. Dispense 14 capsule. Refills: 0. Substitution permitted. [address] ; [place] [address]. . naproxen 500 mg tablet Take 1 tablet twice a day for 7 days -- Dispense 14 tablet. Refills: 0. Substitution permitted. [facility] [employer] [place] [address] [address] ; [place] [address]. FaxNumber: [phone]. gabapentin 100 mg capsule Take 1 capsule three times a day for 3 days -- Dispense 9 capsule. Refills: 0. Substitution permitted. [address] ; [place] [address]. Phone: . 6 Clinical Report - Physicians/Mid Levels [facility] Emergency Department [address] [place] [address] Phone #: ext- [phone] 04/22/2020 14:52 Patient: JAQUELIN CUENCA Sex: F : 1995 Age: 24y Follow-up: Return to the emergency department as needed. Follow up with your healthcare provider in about two days if not better. Call for an appointment. Follow up with a urologist- as recommended by your health care provider- Dr. Jesus Melgar, [facility]. Understanding of the discharge instructions verbalized by patient. Follow-up with: [facility], , , [address] [place] [address], [facility] Follow up. Reason for referral: evaluation, treatment and To establish care. Follow-up with: [facility], , , [address] [place] [address], [facility]; [facility], , , [address] [place] [address], [facility] Follow up. Reason for referral: evaluation and treatment.(Electronically signed by Paul Bear P.A.-C 04/23/2020 12:13) Name Value Range Interpretation Code Description Data Salma rce(s) Supporting Document(s) ID Date Data Source [id number] 04/22/2020 03:06:00 PM EDT [facility] Addenda for JAQUELIN CUENCA VisitID: [id number] Date: 16:37urine culture report positive for e coli, sensitive for macrobid which pt was d/c on(Electronically signed by Rochelle Schuler RN - 04/26/2020 16:37) Name Value Range Interpretation Code Description Data Salma rce(s) Supporting Document(s) ID Date Data Source [id number] 04/23/2020 12:53:00 PM EDT [facility] [address] [place] [address] PHONE: [phone] FAX: [phone] Name .................. : BANG Hanna Acct Number.................. : [id number] ROOM. ................. : TR-02 MR Number ................... : [id number] Stay type ............. : E/R Discharge Date......... ... : 04/22/20 Admit Date ......... : 04/22/20 Admit Phys .................... : REBECCA DELA CRUZ Date of ....... : 1995 Family Phys ................... : NO PCP Phone .................. : [phone] Age ................................ : 24 Film# .................. .:[id number] Sex ................................. : F Unsigned transcriptions are preliminary reports and do not represent a medical or legal document CT ABD & PELV W/O ORAL W/[place] [id number] COMPLETE:04/22/20 19:31 [facility] [id number] Reason(s): ? renal stone CT OF THE ABDOMEN AND PELVIS WITHOUT CONTRAST: INDICATION: Renal stone. FINDINGS: The chest space is clear. There is normal noncontrast CT appearance of the liver, spleen, pancreas, adrenal glands and left kidney. The right kidney contains a 2 mm nonobstructive stone in the mid-pole. No hydronephrosis bilaterally. There is a 9 mm gallstone. No evidence of gallbladder wall thickening or biliary duct dilatation. The visualized bowel is normal in caliber. The appendix is normal. No bowel wall thickening. The bladder and pelvis organs appear normal. No acute osseous abnormality. No lymphadenopathy. IMPRESSION: 1. There is a 2 mm nonobstructive stone in the right kidney. 2. Cholelithiasis without evidence of cholecystitis. While performing the above CT examination, radiation dose reduction was accomplished utilizing automated exposure control, adjusting of the mA and kV based on the patient's body size and/or the use of imperative reconstructive techniques. CT dose: 518.2 mGycm [address] [place] [address] [place] [address] PHONE: [phone] FAX: [phone] Name .................. : BANG Hanna Acct Number.................. : [id number] ROOM. ................. : TR-02 Number ................... : [id number] Stay type ............. : E/R Discharge Date......... ... : 04/22/20 Admit Date ......... : 04/22/20 Admit Phys .................... : REBECCA DELA CRUZ Date of ....... : 1995 Family Phys ................... : NO PCP Phone .................. : [phone] Age ................................ : 24 Film# .................. .:[id number] Sex ................................. : F Unsigned transcriptions are preliminary reports and do not represent a medical or legal document CT ABD & PELV W/[place] ORAL W/[place] [id number] COMPLETE:04/22/20 19:31 [facility] [address] Reason(s): ? renal stone Electronically Reviewed and Signed By Conor Graham M.D. , 04/23/20 12:53, [facility] Transcribe Initials: LEANNA , Transcribe Date: 04/22/20 22:12, Dictation Date: Copy for: WALDEMAR PETER via fax Copy for: EMERGENCY DEPT via modem Copy for: 710 MED REC DISCHARGED Page 2 of 2 Name Value Range Interpretation Code Description Data Salma rce(s) Supporting Document(s) ID Date Data Source [id number] 04/22/2020 04:46:00 PM EDT [facility] Name Value Range Interpretation Code Description Data Salma rce(s) Supporting Document(s) COMPREHENSIVE METABOLIC PANEL [facility] COMPREHENSIVE METABOLIC PANEL Sodium [Moles/volume] in Serum or Plasma 139 mEq/L 134 - 153 [facility] Potassium [Moles/volume] in Serum or Plasma 3.9 mEq/L 3.6 - 5.0 [facility] Chloride [Moles/volume] in Serum or Plasma 103 mEq/L 98 - 107 [facility] Carbon dioxide, total [Moles/volume] in Serum or Plasma 26 MEQ/L 22 - 30 [facility] Glucose [Mass/volume] in Serum or Plasma 78 MG/DL 65 - 110 [facility] BUN 9 MG/DL 7 - 21 [facility] Creatinine [Mass/volume] in Serum or Plasma 0.8 MG/DL 0.7 - 1.5 [facility] BUN/CREAT 11 8 - 27 [facility] Protein [Mass/volume] in Serum or Plasma 7.1 G/DL 6.3 - 8.2 [facility] Albumin [Mass/volume] in Serum or Plasma 4.3 G/DL 3.9 - 5.0 [facility] Globulin [Mass/volume] in Serum by calculation 2.8 GM/DL 2.4 - 3.2 [facility] A/G RATIO 1.5 0.8 - 2.0 [facility] Calcium [Mass/volume] in Serum or Plasma 9.4 MG/DL 8.4 - 10.2 [facility] Bilirubin.total [Mass/volume] in Serum or Plasma <0.7 MG/DL 0.2 - 1.3 [facility] Alkaline phosphatase [Enzymatic activity/volume] in Serum or Plasma 68 U/L 38 - 126 [facility] Aspartate aminotransferase [Enzymatic activity/volume] in Serum or Plasma 16 U/L 5 - 40 [facility] Alanine aminotransferase [Enzymatic activity/volume] in Seru m or Plasma 9 U/L 7 - 56 [facility] Anion gap 3 in Serum or Plasma 10.0 mmol/L 8.0 - 16.0 [facility] 24 [facility] >60 mL/min [facility] AFR AMER GFR >60 mL/min [facility] Male GFR In terprentation 20-49 yrs >60 mL/min Normal 50-59 yrs >56 mL/min Normal 60-69 yrs >49 mL/min Normal 70-79yrs >42 mL/min Normal 80 and above >35 mL/min Normal Female GFR Interpretation 20-39 yrs >60 mL/min Normal 40-49 yrs >58 mL/min Normal 50-59 yrs >51 mL/min Normal 60-69 yrs >45 mL/min Normal 70-79 yrs >39 mL/min Normal 80 and above >32 mL/min Normal ID Date Data Source [id number] 04/22/2020 04:38:00 PM EDT [facility] Name Value Range Interpretation Code Description Data Salma rce(s) Supporting Document(s) Lipase [Enzymatic activity/volume] in Serum or Plasma 34 U/L 13 - 60 [facility] ID Date Data Source [id number] 04/22/2020 04:27:00 PM EDT [facility] Name Value Range Interpretation Code Description Data Salma rce(s) Supporting Document(s) HCG SERUM QUAL NEGATIVE NORMAL: NEGATIVE [facility] HCG SERUM QL REENTER NEGATIVE NORMAL: NEGATIVE Ca [facility] { KIT LOT # [id number] ){ KIT EXP DATE 06-02-21 ){ PROCEDURAL CONTROL VALID ) ID Date Data Source [id number] 04/22/2020 03:49:00 PM EDT [facility] Name Value Range Interpretation Code Description Data Salma rce(s) Supporting Document(s) CBC W/AUTOMATED DIFF [facility] COMPLETE BLOOD COUNT Leukocytes [#/volume] in Blood by Automated count 8.4 10^3/uL 4.2 - 1 1.0 [facility] Erythrocytes [#/volume] in Blood by Automated count 4.50 10^6/uL 4. 20 - 5.40 [facility] Hemoglobin [Mass/volume] in Blood 13.3 g/dL 12.0 - 16.0 [facility] Hematocrit [Volume Fraction] of Blood by Automated count 40.4 % 3 7.0 - 47.0 [facility] Erythrocyte mean corpuscular volume [Entitic volume] by Auto mated count 89.8 fL 81.0 - 101 [facility] Erythrocyte mean corpuscular hemoglobin [Entitic mass] by Automated count 29.6 pg 27.0 - 34.0 [facility] Erythrocyte mean corpuscular hemoglobin concentration [Mass/volume] by Automated count 32.9 g/dL 31.0 - 36.0 [facility] Erythrocyte distribution width [Ratio] by Automated count 11.9 % 11.5 - 14.5 [facility] Platelets [#/volume] in Blood by Automated count 207 10^3/uL 150 - 45 0 [facility] Platelet mean volume [Entitic volume] in Blood by Automated count 11.6 fL 7.4 - 10.4 H [facility] Neutrophils/100 leukocytes in Blood by Automated count 64.1 % 37. 0 - 80.0 [facility] Lymphocytes/100 leukocytes in Blood by Manual count 26.3 % 25.0 - 40.0 [facility] Monocytes/100 leukocytes in Blood by Automated count 6.7 % 3.0 - 8.0 [facility] Eosinophils/100 leukocytes in Blood by Automated count 2.0 % 0.0 - 7.0 [facility] Basophils/100 leukocytes in Blood by Automated count 0.5 % 0.0 - 2.5 [facility] %IG 0.4 % 0.0 - 0.0 H [facility] %NRBC 0.0 % 0.0 - 0.0 [facility] Neutrophils [#/volume] in Blood by Automated count 5.39 10^3/uL 2.00 - 6.90 [facility] Lymphocytes [#/volume] in Blood by Automated count 2.21 10^3/uL 0.60 - 3.40 [facility] Monocytes [#/volume] in Blood by Automated count 0.56 10^3/uL 0.00 - 0.90 [facility] Eosinophils [#/volume] in Blood by Automated count 0.17 10^3/uL 0.00 - 0.70 [facility] Basophils [#/volume] in Blood by Automated count 0.04 10^3/uL 0.00 - 0.20 [facility] #IG 0.03 10^3/uL 0.00 - 0.10 [facility] #NRBC 0.00 10^3/uL 0.00 - 0.00 [facility] MANUAL DIFF NOT INDICATED [facility] RBC MORPH NOT INDICATED [facility] spital ID Date Data Source [id number] 04/26/2020 02:19:00 PM EDT [facility] Name Value Range Interpretation Code Description Data Salma rce(s) Supporting Document(s) CULTURE URINE [facility] sp[facility] _CULTURE URINE_$$[id number]$$[id number]$$[id number]$$614604$$409043$$290553$$261404$$532541$$853603$$ 138902$$582654$$924894$$642879$$648457$$049285$$677035$$910855$$311954$$733120$$ 869803$$856373$$375336$$586500$$116191$$368485$$332819$$957841 -- Continued on next page --Patient: BANG HAMMER R Order: [id number] Page 2Culture: CULTURE URINE Status: Final ==== -- Continued on next page --Patient: BANG HAMMER R Order: [id number] Page 2Culture: CULTURE URINE Status: Prelim =====$$[id number]$$[id number] DATE/TIME: 04/26/2020 13:05Culture: CULTURE URINE Status: FinalIsolate 1 Escherichia coli Flag: A . . . . . . .1Greater than 100,000 colony forming units per mLSusceptibility profile is consistent with a probable ESBL. Previous result entered on 04/25/2020 06:03 ET Escherichia coliUrine Culture,Comprehensive: [id number] coli Flag: APatient: BANG HAMMER R Order: [id number] Page 3Culture: CULTURE URINE Status: Final ISOLATE 1 Escherichia coli Isolate 1Antibiotic WIL IntUnits ug/mL Amoxicillin/Clavulanic Acid S S . . . . . .20-8Ampicillin R R . . . . . .28-1Cefazolin R R . . . . . .76-0Cefepime R R . . . . . .6644- 9Ceftriaxone R R . . . . . .141-2Cefuroxime R R . . . . . .145-3Ciprofloxacin S S . . . . . .185-9Ertapenem S S . . . . . .83926-4Tpzovjkgtz S S . . . . . .267-5Imipenem S S . . . . . .279-0Levofloxacin S S . . . . . .73367- 8Meropenem S S . . . . . .6652-2Nitrofurantoin S S . . . . . .363-2Piperacillin/Tazobactam S S . . . . . .412-7Tetracycline S S . . . . . .496-0Tobramycin S S . . . . . .508- 2Trimethoprim/Sulfa R R . . . . . .516-5P1 Test performed by: ArkeoBaljit [facility] #: [id number] [address] [place] [id number] [facility] [id number] Director : Krunal [place] MD NPI #:Supervisor [employer] : 04/25/[email or web address] REF 04/26/[email or web address].SENT REF ID Date Data Source [id number] 04/22/2020 04:11:00 PM EDT [facility] Name Value Range Interpretation Code Description Data Salma rce(s) Supporting Document(s) URINALYSIS [facility]aro URINALYSIS SOURCE Clean Catch [facility] ital COLOR yellow NORMAL: Yellow [facility] CLARITY cloudy NORMAL: Clear [facility] Specific gravity of Urine by Test strip 1.010 1.001 - 1.030 [facility] pH 8 5 - 9 [facility] Glucose [Mass/volume] in Urine by Test strip NORM NORMAL: Negat alexandra [facility] Bilirubin.total [Presence] in Urine by Test strip NEG NORMAL: Negative [facility] Ketones [Presence] in Urine by Test strip NEG NORMAL: Negative [facility] Protein [Mass/volume] in Urine by Test strip 100 NORMAL: Negat alexandra [facility] Nitrite [Presence] in Urine by Test strip NEG NORMAL: Negative [facility] BLOOD 250 NORMAL: Negative [facility] Leukocyte esterase [Presence] in Urine by Test strip 500 ТАТЬЯНА L: Negative [facility] Urobilinogen [Mass/volume] in Urine by Test strip 1 less nigel n 1.0 mg/dL [facility] MICROSCOPIC See Below [facility] ital WBC 30 - 40 NORMAL: NONE SEEN A [facility] Erythrocytes [#/volume] in Urine by Test strip TNTC NORMAL: NON E SEEN A [facility] EPITHELIAL FEW NORMAL: NONE SEEN [facility] Bacteria [Presence] in Urine sediment by Light microscopy Tr manuel NORMAL: NONE SEEN [facility] Mucus [Presence] in Urine sediment by Light microscopy Trace NORMAL: NONE SEEN [facility] Procedure Social History Code Duration Value Status Description Data Source(s ) Smoking 05/13/2021 12:00:00 AM EDT Patient has never smoked co mpleted Patient has never smoked [facility] ([facility], [facility]) Smoking 05/12/2021 12:00:00 AM EDT Never Smoker completed Never S moker eCW1 ([facility]) Smoking 04/20/2021 12:00:00 AM EDT Never Smoker completed Never S moker eCW1 ([facility]) Smoking 04/20/2021 12:00:00 AM EDT Never Smoker completed Never S moker eCW1 ([facility]) Smoking 03/27/2021 12:00:00 AM EDT Never smoker completed Never s moker NextGen ([facility]) Smoking 12/07/2020 12:00:00 AM EDT Never Smoker completed Never S moker eCW1 ([facility]) Smoking 12/07/2020 12:00:00 AM EDT Never Smoker completed Never S moker eCW1 ([facility]) Smoking 12/07/2020 12:00:00 AM EDT Never Smoker completed Never S moker eCW1 ([facility]) Smoking 11/17/2020 12:00:00 AM EDT Never Smoker completed Never S moker eCW1 ([facility]) Smoking 10/13/2020 12:00:00 AM EST Never Smoker completed Never S moker eCW1 ([facility]) Smoking 06/18/2020 12:00:00 AM EDT Never Smoker completed Never S moker eCW1 ([facility]) Smoking 06/18/2020 12:00:00 AM EDT Never Smoker completed Never S moker eCW1 ([facility]) Smoking 06/18/2020 12:00:00 AM EDT Never Smoker completed Never S moker eCW1 ([facility]) Smoking 06/18/2020 12:00:00 AM EDT Never Smoker completed Never S moker eCW1 ([facility]) Smoking 06/05/2020 12:00:00 AM EDT Never Smoker completed Never S moker eCW1 ([facility]) Smoking 06/05/2020 12:00:00 AM EDT Never Smoker completed Never S moker eCW1 ([facility]) Vital Signs ID Date Data Source UNK Name Value Range Interpretation Code Description Data Source(s) Body weight 137 [lb_av] 137 [lb_av] eCW1 ([facility]) Body weight 62.14 kg 62.14 kg W1 ([facility]) Body height 60 [in_i] 60 [in_i] W1 ([facility]) Body mass index (BMI) [Ratio] 26.756 kg/m2 26.7 56 kg/m2 [facility] ([facility]) Systolic blood pressure 118 mm[Hg] 118 mm[Hg] e CW1 ([facility]) Diastolic blood pressure 68 mm[Hg] 68 mm[Hg] eCW1 ([facility]) Systolic blood pressure 117 mm[Hg] 117 mm[Hg] M EDENT ([facility], [facility]) Diastolic blood pressure 82 mm[Hg] 82 mm[Hg] MEDENT ([facility], [facility]) Heart rate 67 /min 67 /min [facility] ([facility], [facility]) Respiratory rate 16 /min 16 /min [facility] ( [facility], [facility]) Oxygen saturation in Arterial blood by Pulse oximetry 97 % 97 % [facility] ([facility], [facility]) Body temperature 96.6 [degF] 96.6 [degF] MEDENT ([facility], [facility]) Body weight 136.00 [lb_av] 136.00 [lb_av] MEDEN T ([facility], [facility]) Body height 60 [in_i] 60 [in_i] MEDENT ([facility]) 5'0" Body mass index (BMI) [Ratio] 26.6 kg/m2 26.6 k g/m2 [facility] ([facility]) Diastolic blood pressure 62 mm[Hg] 62 mm[Hg] eCW1 ([facility]) Body weight 137.8 [lb_av] 137.8 [lb_av] eCW1 ([facility]) Body weight 62.5 kg 62.5 kg W1 ([facility]) Body height 60 [in_i] 60 [in_i] eCW1 ([facility]) Body mass index (BMI) [Ratio] 26.912 kg/m2 26.9 12 kg/m2 [facility] ([facility]) Systolic blood pressure 118 mm[Hg] 118 mm[Hg] e CW1 ([facility]) Body height 152.40 cm 152.40 cm NextGen ([facility]) Body weight 66.224 kg 66.224 kg NextGen ([facility]) Systolic blood pressure 118 mm[Hg] 118 mm[Hg] N extGen ([facility]) Diastolic blood pressure 76 mm[Hg] 76 mm[Hg] NextGen ([facility]) Body mass index (BMI) [Ratio] 28.51 kg/m2 Overweight 28.51 kg/m2 NextGen ([facility]) Body weight 149 [lb_av] 149 [lb_av] eCW1 ([facility]) Body height 60 [in_i] 60 [in_i] eCW1 ([facility]) Body mass index (BMI) [Ratio] 29.10 kg/m2 29.10 kg/m2 eCW1 ([facility]) Heart rate 61 /min 61 /min eCW1 ([facility]) Respiratory rate 17 /min 17 /min eCW1 ([facility]) Body temperature 97.5 [degF] 97.5 [degF] eCW1 ( [facility]) Systolic blood pressure 115 mm[Hg] 115 mm[Hg] e CW1 ([facility]) Diastolic blood pressure 77 mm[Hg] 77 mm[Hg] eCW1 ([facility]) Body weight 149 [lb_av] 149 [lb_av] eCW1 ([facility]) Body weight 67.59 kg 67.59 kg eCW1 ([facility]) Body height 60 [in_i] 60 [in_i] eCW1 ([facility]) Body mass index (BMI) [Ratio] 29.1 kg/m2 29.1 k g/m2 eCW1 ([facility]) Systolic blood pressure 112 mm[Hg] 112 mm[Hg] e CW1 ([facility]) Diastolic blood pressure 74 mm[Hg] 74 mm[Hg] eCW1 ([facility]) Body weight 153.8 [lb_av] 153.8 [lb_av] eCW1 ([facility]) Body mass index (BMI) [Ratio] 30.03 kg/m2 30.03 kg/m2 eCW1 ([facility]) Body height 60 [in_i] 60 [in_i] eCW1 ([facility]) Heart rate 84 /min 84 /min eCW1 ([facility]) Respiratory rate 17 /min 17 /min eCW1 ([facility]) Body temperature 97.4 [degF] 97.4 [degF] eCW1 ( [facility]) Systolic blood pressure 117 mm[Hg] 117 mm[Hg] e CW1 ([facility]) Diastolic blood pressure 57 mm[Hg] 57 mm[Hg] eCW1 ([facility]) Systolic blood pressure 114 mm[Hg] 114 mm[Hg] M EDENT ([facility], [facility]) Diastolic blood pressure 79 mm[Hg] 79 mm[Hg] MEDENT ([facility], [facility]) Body temperature 97.9 [degF] 97.9 [degF] MEDENT ([facility], [facility]) Body weight 144.00 [lb_av] 144.00 [lb_av] MEDEN T ([facility], [facility]) Body height 60 [in_i] 60 [in_i] [facility] ([facility], [facility]) 5'0" Body mass index (BMI) [Ratio] 28.1 kg/m2 28.1 k g/m2 [facility] ([facility], [facility]) Oxygen saturation in Arterial blood by Pulse oximetry 99 % 99 % [facility] ([facility], [facility]) Heart rate 66 /min 66 /min [facility] ([facility], [facility]) Respiratory rate 12 /min 12 /min [facility] ( [facility], [facility]) [place] body weight 100 [lb_av] 100 [lb_av] MEDEN T ([facility]) Body surface area Derived from formula 1.61 m2 1.61 m2 [facility] ([facility]) Body weight 64.468 kg 64.468 kg [facility] ([facility]) Body mass index (BMI) [Ratio] 27.8 kg/m2 27.8 k g/m2 [facility] ([facility]) Body weight 142.12 [lb_av] 142.12 [lb_av] MEDEN T ([facility]) Body height 60 [in_i] 60 [in_i] [facility] ([facility]) 5'0" Diastolic blood pressure 58 mm[Hg] 58 mm[Hg] MEDENT ([facility], ) Systolic blood pressure 120 mm[Hg] 120 mm[Hg] M EDENT ([facility], ) Body weight 146.2 [lb_av] 146.2 [lb_av] eCW1 ([facility]) Body height 60 [in_i] 60 [in_i] eCW1 ([facility]) Body mass index (BMI) [Ratio] 28.55 kg/m2 28.55 kg/m2 eCW1 ([facility]) Heart rate 62 /min 62 /min eCW1 ([facility]) Respiratory rate 17 /min 17 /min eCW1 ([facility]) Body temperature 97.7 [degF] 97.7 [degF] eCW1 ( [facility]) Systolic blood pressure 115 mm[Hg] 115 mm[Hg] e CW1 ([facility]) Diastolic blood pressure 68 mm[Hg] 68 mm[Hg] eCW1 ([facility]) Body temperature 97.2 [degF] 97.2 [degF] eCW1 ( [facility]) Body weight 145 [lb_av] 145 [lb_av] eCW1 ([facility]) Systolic blood pressure 118 mm[Hg] 118 mm[Hg] e CW1 ([facility]) Body height 60 [in_i] 60 [in_i] eCW1 ([facility]) Diastolic blood pressure 68 mm[Hg] 68 mm[Hg] eCW1 ([facility]) Body mass index (BMI) [Ratio] 28.32 kg/m2 28.32 kg/m2 eCW1 ([facility]) Heart rate 80 /min 80 /min eCW1 ([facility]) Respiratory rate 18 /min 18 /min eCW1 ([facility]) Body weight 138.8 [lb_av] 138.8 [lb_av] eCW1 ([facility]) Body height 60 [in_i] 60 [in_i] eCW1 ([facility]) Body mass index (BMI) [Ratio] 27.10 kg/m2 27.10 kg/m2 eCW1 ([facility]) Heart rate 67 /min 67 /min eCW1 ([facility]) Respiratory rate 17 /min 17 /min eCW1 ([facility]) Body temperature 97.6 [degF] 97.6 [degF] eCW1 ( [facility]) Systolic blood pressure 121 mm[Hg] 121 mm[Hg] e CW1 ([facility]) Diastolic blood pressure 77 mm[Hg] 77 mm[Hg] eCW1 ([facility]) Respiratory rate 12 /min 12 /min MEDENT ( [facility], [facility]) Heart rate 59 /min 59 /min MEDENT ([facility], [facility]) Systolic blood pressure 124 mm[Hg] 124 mm[Hg] M EDENT ([facility], [facility]) Diastolic blood pressure 84 mm[Hg] 84 mm[Hg] MEDENT ([facility], [facility]) Oxygen saturation in Arterial blood by Pulse oximetry 95 % 95 % MEDENT ([facility], [facility]) Body temperature 98.0 [degF] 98.0 [degF] MEDENT ([facility], [facility]) Body weight 138.00 [lb_av] 138.00 [lb_av] MEDEN T ([facility], [facility]) Body height 60 [in_i] 60 [in_i] MEDENT ([facility]) 5'0" Body mass index (BMI) [Ratio] 26.9 kg/m2 26.9 k g/m2 [facility] ([facility]) Patient Treatment Plan of Care Planned Activity Planned Date Details Description Data Source (s) Metoclopramide 10 MG Oral Tablet [Reglan] 03/29/2021 12:00:00 AM ED T eCW1 ([facility]) terbinafine 250 MG Oral Tablet 06/18/2020 12:00:00 AM EDT eCW1 ([facility]) terbinafine 250 MG Oral Tablet 06/18/2020 12:00:00 AM EDT eCW1 ([facility]) terbinafine 250 MG Oral Tablet 06/18/2020 12:00:00 AM EDT eCW1 ([facility]) terbinafine 250 MG Oral Tablet 06/18/2020 12:00:00 AM EDT eCW1 ([facility])
--- OUTSIDE RECORDS SUMMARY | 2021-06-07 12:13 | CCD ---
Author Author [employer] Organization [facility] [employer] Address Unknown Phone Unavailable Care Team Providers Care [employer] Name Role Phone Cindy Avila Unavailable PROBLEMS Type Condition ICD9-CM Code [id number] Code Onset Dates Condition S tatus W/U Status Risk SNOMED Code Notes Problem Renal calculi N20.0 Active confirmed 620988 07 Problem Calculus of gallbladder without cholecystitis wi thout obstruction K80.20 Active confirmed 34812873 Problem Urinary hesitancy R39.11 Active confirmed 59 26338 ALLERGIES No Known Allergies ENCOUNTERS from 1997 to 2021-03-29 Encounter Location Date Provider Diagnosis [facility] [phone] [place] [address] Mar, Cindy Avila IMMUNIZATIONS No Information SOCIAL HISTORY Tobacco Use: Social History Observation Description Date Details (start date - stop date) Never Smoker Sex Assigned At : Social History Observation Description Sex Assigned At Unknown Education: Question Answer Notes Level of Education: College Audit Question Answer Notes Total Score: 0 Interpretation: Alcohol Education Language: Question Answer Notes Languages spoken: [place] Adventist: Question Answer Notes Adventist No christian beliefs that would impact health care. Domestic [...] to an altercation with significant other? No Sexual Hx: Question Answer Notes Had sex in the last 12 months (vaginal, oral, or anal)? Yes LMP: 05/18/2020 Have you ever had an STD? Yes with Men only Other? Yes Herpes? Yes Drug and Alcohol Question Answer Notes Total [...] a day for 90 day(s) May, Not-Taking Lotrimin AF 1 % 1 application Externally Twice a day for 28 day(s) Not-Taking Sulfamethoxazole-Trimethoprim 800-160 MG TAKE 1 TABLET BY MOUTH TWICE DAILY FOR 5 DAYS Oral for 5 Not-Taking Aurovela FE 1/20 1-20 MG-MCG 1 tablet Orally Once a day for 84 day(s) Active Clotrimazole 1 % 1 application Externally Twice a day for 28 day(s) Not-Taking Reglan 10 MG 1 tablet Orally Twice a day for 30 day(s) Mar, Active PROCEDURES No Information RESULTS No Results REASON FOR VISIT Nausea / Vomiting MEDICAL (GENERAL) HISTORY Type Description Date Medical History kidney stone Medical History gall stones Medical History hpv Medical History herpes simplex Medical History abnormal cells on cervic x 1 Surgical History No Surgical history information Hospitalization History No Hospitalization history informati on Goals Section No Information Health Concerns No Information MEDICAL EQUIPMENT No Information MENTAL STATUS No Information FUNCTIONAL STATUS No Information ASSESSMENTS No Information PLAN OF TREATMENT Medication Medication Name Sig Start Date Stop Date Reglan 10 MG 1 tablet Orally Twice a day for 30 day(s) Mar Next Appt Details Provider Name:Nohemi Fallon Aleciawatson, 2021-04-20 01:00:00 PM, [address] [facility], , [place], [address], Insurance Providers Payer Name Payer Address Payer Phone Insured Name Patient Relati onship to Insured Coverage Start Date Coverage End Date [place] [id number] [phone] JAQUELIN CUENCA self
--- OUTSIDE RECORDS SUMMARY | 2021-06-07 13:36 | CCD ---
Author Author [facility] Organization [facility] Address Unknown Phone Unavailable Care Team Providers Care Lamination Builder Name Role Phone NO, PCP Unavailable Unavailable [...] TANIA Unavailable Unavailable TURRIN, TANIA Unavailable Unavailable JAMES MOORE PA Unavailable Unavailable OSCARJAMES ANGEL PA [...] Unavailable OSCAR, JAMES PA Unavailable Unavailable OSCAR, JMAES PA Unavailable Unavailable OSCAR, JAMES PA Unavailable [...] is protected by Article 27-F of the [facility] Public Health law. If you continue you may have access to information: Regarding HIV / AIDS; Provided by facilities licensed or operated by the [facility] Office of Mental Health; or Provided by the [facility] Office for People With Developmental Disabilities. If such information is present, then the following [facility] mandated warning applies: This information has [...] law may result in a fine or half-way sentence or both. A general authorization for the release of medical or other information is NOT sufficient authorization for further disc losure. Encounters Encounter Providers Location Date Indications Data Source(s ) ([facility] OB [address] [place] [address] 05/18/2021 12:00:00 AM EDT eCW1 ([facility]) Outpatient Attender: JAMES coffey 05/13/2021 09:35:00 AM EDT MEDENT ([facility]) Unknown [address] [facility] [address] 04/30/2021 12:00:00 AM EDT eCW1 ([facility]) ([facility]) [facility] OB Visit [address] [place] [address] 04/20/2021 12:00:00 AM EDT eCW1 ([facility]) Unknown [address] [facility] [address] 03/29/2021 12:00:00 AM EDT [facility]CW1 [facility]) OutpatientOFFICE VISIT, NEW Attender: Desiree morales 03/27/2021 09:00:00 AM EDT - 03/27/2021 09:00:00 AM EDT Encounter for test, result positiveOther sex counselingHuman immunodeficiency virus [HIV] counseling NextGen ([facility]) Encounter for test, result pos itive Other sex counseling Human immunodeficiency virus [HIV] couns eling [place] [address] [facility] [address] 01/12/2021 12:00:00 AM EDT eCW1 ([facility]) Outpatient [address] [facility] [place] [address] 12/07/2020 12:00:00 AM EDT eCW1 ([facility]) Outpatient [address] [facility] [place] [address] 11/17/2020 12:00:00 AM EDT eCW1 ([facility]) Outpatient [address] [facility] [place] [address] 10/13/2020 12:00:00 AM EST eCW1 ([facility]) Outpatient Attender: WYATT Lee 09/24/2020 04:40:00 PM EST MEDENT ([facility]) Unknown [address] [facility] [place] [address] 07/31/2020 12:00:00 AM EST eCW1 ([facility]) Unknown [address] [facility] [place] [address] 07/23/2020 12:00:00 AM EST eCW1 ([facility]) Outpatient [address] [facility] [place] [address] 06/18/2020 12:00:00 AM EDT eCW1 ([facility]) Unknown [address] [facility] Y [address] 06/07/2020 12:00:00 AM EDT [facility]CW1 ([facility]) [place] [address] [facility] [address] 06/05/2020 12:00:00 AM EDT eCW1 ([facility]) [place] [address] [facility] [address] 05/28/2020 12:00:00 AM EDT eCW1 ([facility]) Outpatient Attender: JAMES coffey 05/16/2020 09:50:00 AM EDT MEDENT ([facility], [facility]) Emergency Attender: TANIA Hernandezsultant: PCP NO 04/22/2020 03:06:00 PM EDT - 04/22/2020 06:08:00 PM EDT [facility] Patient discharged. Medications Medication Brand Name Start Date Product Form Dose Route Admi nistrative Instructions Pharmacy Instructions Status Indications Reaction Description Data Source(s) Metoclopramide 10 MG Oral Tablet [Reglan] Reglan 10 MG Nellie n 10 MG 03/29/2021 12:00:00 AM EDT 1.0 {tablet} suspended Reglan 10 MG eCW1 ([facility]) Metoclopramide 10 MG Oral Tablet [Reglan] Reglan 10 MG Nellie n 10 MG 03/29/2021 12:00:00 AM EDT 1.0 {tablet} suspended Reglan 10 MG eCW1 ([facility]) Metoclopramide 10 MG Oral Tablet [Reglan] Reglan 10 MG Nellie n 10 MG 03/29/2021 12:00:00 AM EDT 1.0 {tablet} suspended Reglan 10 MG eCW1 ([facility]) Metoclopramide 10 MG Oral Tablet [Reglan] Reglan 10 MG Nellie n 10 MG 03/29/2021 12:00:00 AM EDT 1.0 {tablet} active Re glan 10 MG eCW1 ([facility]) Tamsulosin hydrochloride 0.4 MG Oral Capsule Tamsulosin HCL 09/24/2020 12:00:00 AM EST ORAL active MEDENT ([facility], [facility]) No Active Medications 09/24/2020 12:00:00 AM EST completed MEDENT ([facility], [facility]) terbinafine 250 MG Oral Tablet Terbinafine HCl 250 MG Terbin afine HCl 250 MG 06/18/2020 12:00:00 AM EDT 1.0 {tablet} suspende d Terbinafine HCl 250 MG eCW1 ([facility]) terbinafine 250 MG Oral Tablet Terbinafine HCl 250 MG Terbin afine HCl 250 MG 06/18/2020 12:00:00 AM EDT 1.0 {tablet} active Terbinafine HCl 250 MG eCW1 ([facility]) terbinafine 250 MG Oral Tablet Terbinafine HCl 250 MG Terbin afine HCl 250 MG 06/18/2020 12:00:00 AM EDT 1.0 {tablet} suspended eCW1 ([facility]) terbinafine 250 MG Oral Tablet Terbinafine HCl 250 MG Terbin afine HCl 250 MG 06/18/2020 12:00:00 AM EDT 1.0 {tablet} suspende d Terbinafine HCl 250 MG eCW1 ([facility]) terbinafine 250 MG Oral Tablet Terbinafine HCl 250 MG Terbin afine HCl 250 MG 06/18/2020 12:00:00 AM EDT 1.0 {tablet} active Terbinafine HCl 250 MG eCW1 ([facility]) terbinafine 250 MG Oral Tablet Terbinafine HCl 250 MG Terbin afine HCl 250 MG 06/18/2020 12:00:00 AM EDT 1.0 {tablet} suspende d Terbinafine HCl 250 MG eCW1 ([facility]) terbinafine 250 MG Oral Tablet Terbinafine HCl 250 MG Terbin afine HCl 250 MG 06/18/2020 12:00:00 AM EDT 1.0 {tablet} active Terbinafine HCl 250 MG eCW1 ([facility]) terbinafine 250 MG Oral Tablet Terbinafine HCl 250 MG Terbin afine HCl 250 MG 06/18/2020 12:00:00 AM EDT 1.0 {tablet} suspende d Terbinafine HCl 250 MG eCW1 ([facility]) terbinafine 250 MG Oral Tablet Terbinafine HCl 250 MG Terbin afine HCl 250 MG 06/18/2020 12:00:00 AM EDT 1.0 {tablet} suspende d Terbinafine HCl 250 MG eCW1 ([facility]) terbinafine 250 MG Oral Tablet Terbinafine HCl 250 MG Terbin afine HCl 250 MG 06/18/2020 12:00:00 AM EDT 1.0 {tablet} active Terbinafine HCl 250 MG eCW1 ([facility]) terbinafine 250 MG Oral Tablet Terbinafine HCl 250 MG Terbin afine HCl 250 MG 06/18/2020 12:00:00 AM EDT 1.0 {tablet} suspende d Terbinafine HCl 250 MG eCW1 ([facility]) terbinafine 250 MG Oral Tablet Terbinafine HCl 250 MG Terbin afine HCl 250 MG 06/18/2020 12:00:00 AM EDT 1.0 {tablet} suspende d Terbinafine HCl 250 MG eCW1 ([facility]) Clotrimazole 10 MG/ML Topical Cream Clotrimazole 1 % Clotrim azole 1 % 05/28/2020 12:00:00 AM EDT 1.0 {application} active Clotrimazole 1 % eCW1 ([facility]) Clotrimazole 10 MG/ML Topical Cream Clotrimazole 1 % Clotrim azole 1 % 05/28/2020 12:00:00 AM EDT 1.0 {application} active Clotrimazole 1 % eCW1 ([facility]) Hydroxyzine Hydrochloride 25 MG Oral Tablet Hydroxyzine HCL 05/16/2020 12:00:00 AM EDT ORAL completed MEDENT ([facility], [facility]) Insurance Providers Payer name Policy type / Coverage type Policy ID Covered constitution party ID Covered constitution party's relationship to dyer Policy Dyer Plan Information [facility] [id number] [facility] - O/P [id number] Problems, Conditions, and Diagnoses Code Display Name Description Problem Type Effective Dates Data Source(s) A69737 Personal history of urinary calculi Personal his tory of urinary calculi Diagnosis 04/22/2020 03:06:00 PM EDT [facility] N3001 Acute cystitis with hematuria Acute cystitis with ld turia Diagnosis 04/22/2020 03:06:00 PM EDT [facility] K8020 Calculus of gallbladder without cholecys titis without obstruction Calculus of gallbladder without cholecystitis without obstruction Diagnosis 04/22/2020 03:06:00 PM EDT [facility] N200 Calculus of kidney Calculus of kidney Diagnosis 0 03:06:00 PM EDT [facility] R300 Dysuria Dysuria Diagnosis 04/22/2020 03:06:00 PM ED T [facility] Z34.80 care Supervision of other normal Maria Esther mancilla 04/19/2021 12:00:00 AM EDT eCW1 ([facility]) N20.0 [id number] Renal calculi Problem 05/28/2020 12:00:00 AM EDT eCW1 ([facility]) R39.11 [id number] Urinary hesitancy Problem 05/28/2020 12:00:0 0 AM EDT eCW1 ([facility]) K80.20 [id number] Calculus of gallblad martha without cholecystitis without obstruction Problem 05/28/2020 12:00:00 AM EDT eCW ([facility]) Surgeries/Procedures Procedure Description Date Indications Data Source(s) OFFICE OUTPATIENT VISIT 25 MINUTES 05/13/2021 12:00:00 AM EDT MEDENT ([facility], [facility]) CVR Mathematician.Svc. STI / H 03/27/2021 12:00:00 AM EDT - 03/27/2021 12:00:00 AM EDT NextGen ([facility]) CVR Mathematician.Svc. Other 03/27/2021 12:00:00 AM EDT - 2020 12:00:00 AM EDT NextGen ([facility]) CVR Mathematician.Svc. WIC 03/27/2021 12:00:00 AM EDT - 03/27/20 12:00:00 AM EDT [facility]Gen ([facility]) CVR Mathematician.Svc. Options 12:00:00 AM EDT - 03/27/2021 12:00:00 AM EDT NextGen ([facility]) CVR Mathematician.Svc. Nutrition 03/27/2021 12:00: 00 AM EDT - 03/27/2021 12:00:00 AM EDT NextGen ([facility]) CVR Mathematician.Svc. Contraceptive 03/27/2021 12 :00:00 AM EDT - 03/27/2021 12:00:00 AM EDT NextGen ([facility]) CVR Med.Svc. Height/Weight 03/27/2021 12 :00:00 AM EDT - 03/27/2021 12:00:00 AM EDT [facility]Gen ([facility]) CVR Blood Pressure 03/27/2021 12:00:00 AM EDT - 2020 12:00:00 AM EDT NextGen ([facility]) HCS Without Test 03/27/2021 12:00:00 AM EDT - 03/27/20 21 12:00:00 AM EDT NextGen ([facility]) OFFICE VISIT, NEW 03/27/2021 12:00:00 AM EDT - 021 12:00:00 AM EDT NextGen ([facility]) URINE TEST 03/27/2021 12:00:00 AM EDT - 03/27/2021 12:00:00 AM EDT NextGen ([facility]) Results ID Date Data Source [id number] 05/13/2021 12:00:00 AM EDT [facility] Name Value Range Interpretation Code Description Data Salma rce(s) Supporting Document(s) SARS-CoV2 Rapid Antigen Negative [facility] This lab was reported by [facility]. ID Date Data Source [id number] 07/08/2020 12:00:00 AM EST [facility] Name Value Range Interpretation Code Description Data Salma rce(s) Supporting Document(s) SARS coronavirus 2 Ag [facility] This lab was ordered by [facility] and reported by [facility]. ID Date Data Source [id number] 03/27/2021 09:12:05 AM EDT NextGen ([facility]) Name Value Range Interpretation Code Description Data Salma rce(s) Supporting Document(s) Positive Abnormal (applies to non-num lacho results) High Sensitivity Urine Test [facility] ID Date Data Source CHLAMYDIA & GC DNA AMPLIFICAT 11/17/2020 12:00:00 AM EDT eCW 1 ([facility]) Name Value Range Interpretation Code Description Data Salma rce(s) Supporting Document(s) Chlamydia trachomatis rRNA [Presence] in Unspecified specimen by Probe and target amplification method NEGATIVE NEGATIVE eCW1 ([facility]) ID Date Data Source [id number] 09/24/2020 05:59:00 PM EST MEDENT ([facility]) Name Value Range Interpretation Code Description Data Salma rce(s) Supporting Document(s) Bacteria identified in Urine by Culture Laboratory test result [facility]) Rx Tamsulosin ID Date Data Source [id number] 07/23/2020 12:00:00 AM EST [facility] Name Value Range Interpretation Code Description Data Salma rce(s) Supporting Document(s) SARS-CoV2 Rapid Antigen [facility] This lab was ordered by [facility] and reported by [facility] Urgent [facility]. ID Date Data Source Test, Urine 06/18/2020 12:51:47 PM EDT eCW1 ([facility]) Name Value Range Interpretation Code Description Data Salma rce(s) Supporting Document(s) Choriogonadotropin.beta subunit ( test) [Presence] in Urin e neg Test, Urine eCW1 ([facility]) yes Internal QC Acceptable (Y/N) e CW1 ([facility]) ID Date Data Source Urinalysis, no micro 05/28/2020 01:04:29 PM EDT eCW1 ([facility]) Name Value Range Interpretation Code Description Data Salma rce(s) Supporting Document(s) 1.020 Spec gravity eCW1 ([facility]) trace [facility] 5 [facility] neg [facility]itrate [facility] neg Protein [facility] neg Glucose [facility]CW1 [facility] neg Ketones [facility]CW1 [facility] normal Urobili [facility] Internal QC Acceptable (Y/N) e CW1 ([facility]) neg Bilirubin [facility] neg Blood [facility] ID Date Data Source [id number] 04/22/2020 03:06:00 PM EDT [facility] 1 OrderSheet [facility] Emergency Department [address] [place] [address] Phone #: ext- [phone] 04/22/2020 14:52 [id number] Sex: F : 1995 Age: 24yWEIGHT:63.0 kg (S) HEIGHT:60 inches (S) BMI:27.1ALLERGIES: No Known Drug AllergyCHIEF COMPLAINT: dysuriaDIAGNOSIS: Biliary calculus, Urinary tract infectious disease, Kidney stoneLAB ORDERSOrder Description Priority Entered Acknowledged InitialedUrinalysis (Clean STAT 15:08 04/22/2020 15:08 Dimitri Mcdonough) Marce McdonoughNLakshmi RLakshmiNLakshmi; Verbal order per; Paul Mart-CCBC w Diff STAT 15:17 04/22/2020 15:33 Jabari Bear clerical specialistCarl Doshi-C; [id number] STAT 15:17 04/22/2020 15:33 Jabari Bear clerical specialist, Carl ER P.A.-C; [id number] STAT 15:17 04/22/2020 15:33 [place] Paul Bear clerical specialist, Carl HITESH P.A.-C; [id number] Serum Qual STAT 15:17 04/22/2020 15:33 Jabari Bear clerical specialist, Carl ER P.A.-C; [id number], Urine STAT 17:03 04/22/2020 17:25 Janette,(Urine, Clean Rccecil Bear Lucero R.N.Catch) P.A.-C;DIAGNOSTIC STUDY ORDERSOrder Description Priority Entered Acknowledged InitialedCT ABD PEL W/O STAT 15:17 04/22/2020 Ack'd: 15:42 16:45 Sharonda,Oral W/O IV Marce Turner.Preeti.Contrast P.A.-C; R.N.(Oxygen?(No))(IV?(Yes)) Reason for Study: ? renal stoneMEDICATION/IV/DRIP/FLUID ORDERS 2 OrderSheet [facility] Emergency Department [address] [place] [address] Phone #: ext- [phone] 04/22/2020 14:52 Patient: [...] rce(s) Supporting Document(s) ID Date Data Source [id number] 04/22/2020 03:06:00 PM EDT [facility] 1 Medication Reconciliation Report [facility] Emergency Department [address] [place] [address] Phone #: ext- [phone] 04/22/2020 14:52 Patient: [...] Dispense 14 capsule. Refills: 0.Substitution permitted.Pharmacy - [facility] [address] ; [place] [address]. .Flomax 0.4 mg capsule Take 1 capsule once a day for 14 days -- To help with expulsion of stone.recommend to take in the AM. Dispense 14 capsule. Refills: 0. Substitution permitted.Pharmacy - [facility] [address] [place] [address] [address] ; [place] [address]. .naproxen 500 mg tablet Take 1 tablet twice a day for 7 days -- Dispense 14 tablet. Refills: 0.Substitution permitted.[facility] [address] [place] [address] [address] ; [place] [address]. . 2 Medication Reconciliation Report [facility] Emergency Department [address] [place] [address] Phone #: ext- [phone] 04/22/2020 14:52 Patient: JAQUELIN CUENCA Sex: F : 1995 Age: 24ygabapentin 100 mg capsule Take 1 capsule three times a day for 3 days -- Dispense 9 capsule. Refills:0. Substitution permitted.[facility] [id number] ; [place] [address]. FaxNumber: [phone]. -- Paul Bear P.A.-C Name Value Range Interpretation Code Description Data Salma rce(s) Supporting Document(s) ID Date Data Source [id number] 04/22/2020 03:06:00 PM EDT [facility] 1 Medication Administration Record [facility] Emergency Department [address] [place] [address] Phone #: ext- [phone] 04/22/2020 14:52 Patient: [...] rce(s) Supporting Document(s) ID Date Data Source [id number] 04/22/2020 03:06:00 PM EDT [facility] 1 General Instructions [facility] Emergency Department [address] [place] [address] Phone #: [phone]- [phone] 04/22/2020 14:52 [facility]: [id number] Sex: F : 1995 Age: 24yRight nephrolithiasis [...] days -- Dispense 14 capsule. Refills: 0.Substitution permitted.[address] ; [place] [address]. .Flomax 0.4 mg capsule Take 1 capsule once a day for 14 days -- To help with expulsion of stone.recommend to take in the AM. Dispense 14 capsule. Refills: 0. Substitution permitted.[address] ; [place] [address]. .naproxen 500 mg tablet Take 1 tablet twice a day for 7 days -- Dispense 14 tablet. Refills: 0.Substitution permitted.[address] ; [place] [address]. FaxNumber: [phone].gabapentin 100 mg capsule Take 1 capsule three times a day for 3 days -- Dispense 9 capsule. Refills:0. Substitution permitted.[address] ; [place] [address]. .Follow-up: 2 General Instructions [facility] Emergency Department [address] [place] [address] Phone #: ext- [phone] 04/22/2020 14:52 Patient: JAQUELIN CUENCA Sex: F : 1995 Age: 24yRetu rn to the emergency department as needed. Follow up with your healthcare provider in about twodays if not better. Call for an appointment. Follow up with a urologist- as recommended by your healthcare provider- Dr. Jesus Melgar, [facility].Understanding of the discharge instructions verbalized by patient.Follow-up with: [facility], , , [address] [place] [address], [facility] Follow up. Reason for referral: evaluation, treatment and To establish care.Follow-up with: [facility], , , [address] [place] [address], [facility]; [facility], , , [address] [place] [address], [facility] Follow up. Reason for referral: evaluation [...] easily treated. They are 3 General Instructions [facility] Emergency Department [address] [place] [address] Phone #: ext- [phone] 04/22/2020 14:52 Patient: [...] to back. Bowel incontinence 4 General Instructions [facility] Emergency Department [address] [place] [address] Phone #: ext- [phone] 04/22/2020 14:52 Patient: [...] for a long time. 5 General Instructions [facility] Emergency Department [address] [place] [address] Phone #: ext- [phone] 04/22/2020 14:52 Patient: [...] or dizziness Vaginal discharge 6 General Instructions [facility] Emergency Department [address] [place] [address] Phone #: ext- [phone] 04/22/2020 14:52 Patient: JAQUELIN CUENCA Sex: F : 1995 Age: 24y Pain, redness, or swelling in the outer vaginal area (labia) [phone] [employer]. [address] [place] [address], [place] [address]. All rights reserved. This information is not [...] OK, you can give 7 General Instructions [facility] Emergency Department [address] [place] [address] Phone #: ext- [phone] 04/22/2020 14:52 Patient: JAQUELIN CUENCA Sex: F [...] findings that may affect your child's care.Call [phone] if any of these occur: Trouble breathing Difficulty arousing Fainting or loss of consciousness Rapid heart rate 8 General Instructions [facility] Emergency Department [address] [place] [address] Phone #: ext- [phone] 04/22/2020 14:52 Patient: JAQUELIN CUENCA Sex: F [...] tint to the skin or eyes (jaundice) [phone] [employer]. [address] [place], [place] [id number]. All rights reserved. This information is not intended as asubstitute for professional medical care. Always follow your healthcare professional's instructions.Kidney Stone with Pain 9 General Instructions [facility] Emergency Department [address] [place] [address] Phone #: ext- [phone] 04/22/2020 14:52 Patient: [...] stomach ulcer or GI 10 General Instructions [facility] Emergency Department [address] [place] [address] Phone #: ext- [phone] 04/22/2020 14:52 Patient: [...] changes in your diet 11 General Instructions [facility] Emergency Department [address] [place] [address] Phone #: ext- [phone] 04/22/2020 14:52 Patient: [...] new findings that may affect your care.Call [phone] if you have any of these: [...] 8 hours and in creasing bladder pressure [phone] [employer]. [address] [place] [address]. All rights reserved. This information is not intended as asubstitute for professional medical care. Always follow your healthcare professional's instructions.Kidney Stone, Undescended, No Symptoms 12 General Instructions [facility] Emergency Department [address] [place] [address] Phone #: ext- [phone] 04/22/2020 14:52 Patient: [...] for yourself at home: 13 General Instructions [facility] Emergency Department [address] [place] [address] Phone #: ext- [phone] 04/22/2020 14:52 Patient: [...] amounts when cooking, and 14 General Instructions [facility] Emergency Department [address] [place] [address] Phone #: ext- [phone] 04/22/2020 14:52 Patient: [...] of any findings that mayaffect your care.Call [phone] if you have any of these: Weakness, [...] for 8 hours or increasing bladder pressure [phone] [employer] [place] [address], [place] [address]. All rights reserved. This information is not intended as asubstitute for professional medical care. Always follow your healthcare professional's instructions. 15 General Instructions [facility] Emergency Department [address] [place] [address] Phone #: ext- [phone] 04/22/2020 14:52 Patient: [...] of urine comes out 16 General Instructions [facility] Emergency Department [address] [place], [place] [id number] Phone #: ext- [phone] 04/22/2020 14:52 Patient: [...] and usually clear up 17 General Instructions [facility] Emergency Department [address] [place] [address] Phone #: ext- [phone] 04/22/2020 14:52 Patient: [...] If directed, you can 18 General Instructions [facility] Emergency Department [address] [place] [address] Phone #: ext- [phone] 04/22/2020 14:52 Patient: JAQUELIN CUENCA Sex: F : 1995 Age: 24ycall to find out the results.If X-rays were done, you will be told if the results will affect your treatment.Call [phone] if any of the following occur: Trouble [...] swelling in the outer vaginal area (labia) 7822-5450 [employer]. [address] [place] [address]. All rights reserved. This information is not intended as asubstitute for professional medical care. Always follow your healthcare professional's instructions.Blood in the Urine 19 General Instructions [facility] Emergency Department [address] [place] [address] Phone #: ext- [phone] 04/22/2020 14:52 Patient: [...] had blood in your 20 General Instructions [facility] Emergency Department [address] [place] [address] Phone #: fdj- [phone] 04/22/2020 14:52 Patient: JAQUELIN CUENCA Sex: F [...] the nose or gums or easy bruising 2101-5528 [employer]. [address] [place] [address]. All rights reserved. This information is not [...] duct out of the 21 General Instructions [facility] Emergency Department [address] [place] [address] Phone #: ext- [phone] 04/22/2020 14:52 Patient: [...] Repeated vomiting Swollen belly 22 General Instructions [facility] Emergency Department [address] [place] [address] Phone #: ext- [phone] 04/22/2020 14:52 - Patient: JAQUELIN CUENCA Sex: F : 1995 Age: 24y Fever of 100.4F (38C) or higher, or as directed by your healthcare provider Very dark urine, light colored stools, or yellow color of the skin or eyes Chest, arm, back, neck or jaw pain 1999- 2017 [employer]. [address] [place] [address]. All rights reserved. This information is not [...] rce(s) Supporting Document(s) ID Date Data Source [id number] 04/22/2020 03:06:00 PM EDT [facility] 1 Clinical Report - Nurses [facility] Emergency Department [address] [place] [address] Phone #: ext- [phone] 04/22/2020 14:52 Patient: [...] has irritation.). 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 --15:00 04/22/20 Marce Mcdonough R.N. Interventions Identification band on patient. --15:00 [...] Mcdonough R.N. 3 Clinical Report - Nurses [facility] Emergency Department [address] [place] [address] Phone #: ext- [phone] 04/22/2020 14:52 Patient: JAQUELIN CUENCA Sex: F [...] she states feels better. [facility] --16:45 04/22/20 Marce Mcdonough R.N.16:45 04/22/2020 Zofran IVP Response: no adverse reaction symptoms have improved the patient feelsbetter. --16:45 04/22/20 Marce Mcdonough R.N.16:46 04/22/2020 Benadryl IVP Response: no adverse reaction symptoms have improved the patient feelsbetter. --16:46 04/22/20 Marce Mcdonough R.N. 4 Clinical Report - Nurses [facility] Emergency Department [address] [place] [address] Phone #: ext- [phone] 04/22/2020 14:52 Patient: JAQUELIN CUENCA Sex: F : 1995 Age: 24y Patient returned from CT by wheelchair with radiology technician. --16:56 04/22/20 Marce Mcdonough R.N.DISPOSITION / DISCHARGE 18:02 04/22/20. BP: 100/68. HR: 70. RR: 17. O2 saturation: 99%. Temp: 98.4 F. Pain level now 0/10. --18:03 04/22/20 [facility] Tech, Carl, Tech1 17:58 04/22/2020 IV [...] Patient verbalized understanding. Written instructions provided in Jamaican. The patient was discharged by the physician podiatrist assistant. She was discharged home and accompanied by spouse. She left ambulatory and via private vehicle. Spouse driving. --18:12 04/22/20 Lucero Savage R.N.Locked/Released at 04/22/2020 18:13 by Lucero Savage R.N. Name Value Range Interpretation Code Description Data Salma rce(s) Supporting Document(s) ID Date Data Source [id number] 04/22/2020 03:06:00 PM EDT [facility] 1 Clinical Report - Physicians/Mid Levels [facility] Emergency Department [address] [place] [address] Phone #: ext- [phone] 04/22/2020 14:52 Patient: [...] reviewed. 2 Clinical Report - Physicians/Mid Levels [facility] Emergency Department [address] [place] [address] Phone #: ext- [phone] 04/22/2020 14:52 Patient: JAQUELIN CUENCA Sex: F [...] INDICATED 3 Clinical Report - Physicians/Mid Levels [facility] Emergency Department [address] [place] [address] Phone #: ext- [phone] 04/22/2020 14:52 [id number] Sex: F : 1995 Age: 24y RBC [...] Male GFR Interprentation 20-49 yrs >60 mL/min Pfzwwb33-11 yrs >56 mL/min Normal 60-69 yrs >49 mL/min Normal 70-79yrs>42 mL/min Normal 80 and above >35 mL/min Normal Female GFRInterpretation 20-39 yrs >60 mL/min Normal 40-49 yrs >58 mL/minNormal 50-59 yrs >51 mL/min Normal 60-69 yrs >45 mL/min Pmqvpt83-68 yrs >39 mL/min Normal 80 and above >32 mL/min NormalLipase: (PATRIZIA: 04/22/2020 15:20) ( [facility] 04/22/2020 16:38) Final results Test Result Flag Units (Reference) LIPASE 34 U/L (13 - 60)Beta-HCG, Qual Serum: (PATRIZIA: 04/22/2020 15:20) ( [facility] 04/22/2020 16:27) Final results Test Result Flag Units (Reference) HCG SERUM QUAL NEGATIVE (NORMAL: NEGAT HCG SERUM QL REENTER NEGATIVE (NORMAL: NEGAT { KIT LOT # [id number] ){ KIT EXP [id number] ){ PROCEDURAL CONTROL VALID)Urinalysis: (PATRIZIA: 04/22/2020 15:08) ( [facility] 04/22/2020 16:12) Final results Test Result Flag Units (Reference) URINALYSIS URINALYSIS SOURCE Clean Catch COLOR yellow (NORMAL: Yello CLARITY cloudy (NORMAL: Clear SPEC GRAVITY 1.010 (1.001 - 1.030 4 Clinical Report - Physicians/M id Levels [facility] Emergency Department [address] [place] [address] Phone #: ext- [phone] 04/22/2020 14:52 Patient: [...] weight. 5 Clinical Report - Physicians/Mid Levels [facility] Emergency Department [address] [place] [address] Phone #: ext- [phone] 04/22/2020 14:52 Patient: [id number] Sex: F : 1995 Age: 24y Disposition: [...] Dispense 14 capsule. Refills: 0. Substitution permitted. [facility] [address] [place] [address] [address] ; [place] [address]. . Flomax 0.4 mg capsule Take 1 capsule once a day for 14 days -- To help with expulsion of stone. recommend to take in the AM. Dispense 14 capsule. Refills: 0. Substitution permitted. [address] ; [place] [address]. . naproxen 500 mg tablet Take 1 tablet twice a day for 7 days -- Dispense 14 tablet. Refills: 0. Substitution permitted. [facility] [employer] [place] [address] [address] ; [place] [address]. FaxNumber: . gabapentin 100 mg capsule Take 1 capsule three times a day for 3 days -- Dispense 9 capsule. Refills: 0. Substitution permitted. [address] ; [place] [address]. Phone: . 6 Clinical Report - Physicians/Mid Levels [facility] Emergency Department [address] [place] [address] Phone #: ext- [phone] 04/22/2020 14:52 Patient: JAQUELIN CUENCA Sex: F : 1995 Age: 24y Follow-up: Return to the emergency department as needed. Follow up with your healthcare provider in about two days if not better. Call for an appointment. Follow up with a urologist- as recommended by your health care provider- Dr. Jesus Melgar, [facility]. Understanding of the discharge instructions verbalized by patient. Follow-up with: [facility], , , [address] [place] [address], [facility] Follow up. Reason for referral: evaluation, treatment and To establish care. Follow-up with: [facility], , , [address] [place] [address], [facility]; [facility], , , [address] [place] [address], [facility] Follow up. Reason for referral: evaluation and treatment.(Electronically signed by Paul Bear P.A.-C 04/23/2020 12:13) Name Value Range Interpretation Code Description Data Salma rce(s) Supporting Document(s) ID Date Data Source [id number] 04/22/2020 03:06:00 PM EDT [facility] Addenda for JAQUELIN CUENCA VisitID: [id number] Date: 16:37urine culture report positive for e coli, sensitive for macrobid which pt was d/c on(Electronically signed by Rochelle Schuler RN - 04/26/2020 16:37) Name Value Range Interpretation Code Description Data Salma rce(s) Supporting Document(s) ID Date Data Source [id number] 04/23/2020 12:53:00 PM EDT [facility] [address] [place] [address] PHONE: [phone] FAX: [phone] Name .................. : BANG Hanna Acct Number.................. : [id number] ROOM. ................. : TR-02 MR Number ................... : [id number] Stay type ............. : E/R Discharge Date......... ... : 04/22/20 Admit Date ......... : 04/22/20 Admit Phys .................... : REBECCA DELA CRUZ Date of ....... : 1995 Family Phys ................... : NO PCP Phone .................. : [phone] Age ................................ : 24 Film# .................. .:[id number] Sex ................................. : F Unsigned transcriptions are preliminary reports and do not represent a medical or legal document CT ABD & PELV W/[place] OR[place] W/[place] [id number] COMPLETE:04/22/20 19:31 [facility] [id number] Reason(s): ? renal stone CT OF THE [...] CT dose: 518.2 mGycm [address] [place] [address] [place] [address] PHONE: [phone] FAX: [phone] Name .................. : BANG Hanna Acct Number.................. : [id number] ROOM. ................. : TR-02 Number ................... : [id number] Stay type ............. : E/R Discharge Date......... ... : 04/22/20 Admit Date ......... : 04/22/20 Admit Phys .................... : REBECCA DELA CRUZ Date of ....... : 1995 Family Phys ................... : NO PCP Phone .................. : [phone] Age ................................ : 24 Film# .................. .:[id number] Sex ................................. : F Unsigned transcriptions are preliminary reports and do not represent a medical or legal document CT ABD & PELV W/[place] W/[place] [id number] COMPLETE:04/22/20 19:31 [facility] [address] Reason(s): ? renal stone Electronically Reviewed and Signed By Conor Graham M.D. , 04/23/20 12:53, [place] Transcribe Initials: LEANNA , Transcribe Date: 04/22/20 22:12, Dictation Date: Copy for: WALDEMAR PETER via fax Copy for: EMERGENCY DEPT via modem Copy for: 710 MED REC DISCHARGED Page 2 of 2 Name Value Range Interpretation Code Description Data Salma rce(s) Supporting Document(s) ID Date Data Source [id number] 04/22/2020 04:46:00 PM EDT [facility] Name Value Range Interpretation Code Description Data Salma rce(s) Supporting Document(s) COMPREHENSIVE METABOLIC PANEL [facility] COMPREHENSIVE METABOLIC PANEL Sodium [Moles/volume] in Serum or Plasma 139 mEq/L 134 - 153 [facility] Potassium [Moles/volume] in Serum or Plasma 3.9 mEq/L 3.6 - 5.0 [facility] Chloride [Moles/volume] in Serum or Plasma 103 mEq/L 98 - 107 [facility] Carbon dioxide, total [Moles/volume] in Serum or Plasma 26 MEQ/L 22 - 30 [facility] Glucose [Mass/volume] in Serum or Plasma 78 MG/DL 65 - 110 [facility] BUN 9 MG/DL 7 - 21 [facility] Creatinine [Mass/volume] in Serum or Plasma 0.8 MG/DL 0.7 - 1.5 [facility] BUN/CREAT 11 8 - 27 [facility] Protein [Mass/volume] in Serum or Plasma 7.1 G/DL 6.3 - 8.2 [facility] Albumin [Mass/volume] in Serum or Plasma 4.3 G/DL 3.9 - 5.0 [facility] Globulin [Mass/volume] in Serum by calculation 2.8 GM/DL 2.4 - 3.2 [facility] A/G RATIO 1.5 0.8 - 2.0 [facility] Calcium [Mass/volume] in Serum or Plasma 9.4 MG/DL 8.4 - 10.2 [facility] Bilirubin.total [Mass/volume] in Serum or Plasma <0.7 MG/DL 0.2 - 1.3 [facility] Alkaline phosphatase [Enzymatic activity/volume] in Serum or Plasma 68 U/L 38 - 126 [facility] Aspartate aminotransferase [Enzymatic activity/volume] in Serum or Plasma 16 U/L 5 - 40 [facility] Alanine aminotransferase [Enzymatic activity/volume] in Seru m or Plasma 9 U/L 7 - 56 [facility] Anion gap 3 in Serum or Plasma 10.0 mmol/L 8.0 - 16.0 [facility] AGE 24 yrs [facility] NON-AA GFR >60 mL/min [facility] ital AFR AMER GFR >60 mL/min [facility] Ho spital Male GFR In terprentation 20-49 [...] >32 mL/min Normal ID Date Data Source [id number] 04/22/2020 04:38:00 PM EDT [facility] Name Value Range Interpretation Code Description Data Salma rce(s) Supporting Document(s) Lipase [Enzymatic activity/volume] in Serum or Plasma 34 U/L 13 - 60 [facility] ID Date Data Source [id number] 04/22/2020 04:27:00 PM EDT [facility] Name Value Range Interpretation Code Description Data Salma rce(s) Supporting Document(s) HCG SERUM QUAL NEGATIVE NORMAL: NEGATIVE [facility] HCG SERUM QL REENTER NEGATIVE NORMAL: NEGATIVE [facility] { KIT LOT # [id number] ){ KIT EXP DATE 06-02-21 ){ PROCEDURAL CONTROL VALID ) ID Date Data Source [id number] 04/22/2020 03:49:00 PM EDT [facility] Name Value Range Interpretation Code Description Data Salma rce(s) Supporting Document(s) CBC W/AUTOMATED DIFF [facility] COMPLETE BLOOD COUNT Leukocytes [#/volume] in Blood by Automated count 8.4 10^3/uL 4.2 - 1 1.0 [facility] Erythrocytes [#/volume] in Blood by Automated count 4.50 10^6/uL 4. 20 - 5.40 [facility] Hemoglobin [Mass/volume] in Blood 13.3 g/dL 12.0 - 16.0 [facility] Hematocrit [Volume Fraction] of Blood by Automated count 40.4 % 3 7.0 - 47.0 [facility] Erythrocyte mean corpuscular volume [Entitic volume] by Auto mated count 89.8 fL 81.0 - 101 [facility] Erythrocyte mean corpuscular hemoglobin [Entitic mass] by Automated count 29.6 pg 27.0 - 34.0 [facility] Erythrocyte mean corpuscular hemoglobin concentration [Mass/volume] by Automated count 32.9 g/dL 31.0 - 36.0 [facility] Erythrocyte distribution width [Ratio] by Automated count 11.9 % 11.5 - 14.5 [facility] Platelets [#/volume] in Blood by Automated count 207 10^3/uL 150 - 45 0 [facility] Platelet mean volume [Entitic volume] in Blood by Automated count 11.6 fL 7.4 - 10.4 H [facility] Neutrophils/100 leukocytes in Blood by Automated count 64.1 % 37. 0 - 80.0 [facility] Lymphocytes/100 leukocytes in Blood by Manual count 26.3 % 25.0 - 40.0 [facility] Monocytes/100 leukocytes in Blood by Automated count 6.7 % 3.0 - 8.0 [facility] Eosinophils/100 leukocytes in Blood by Automated count 2.0 % 0.0 - 7.0 [facility] Basophils/100 leukocytes in Blood by Automated count 0.5 % 0.0 - 2.5 [facility] %IG 0.4 % 0.0 - 0.0 H [facility] al %NRBC 0.0 % 0.0 - 0.0 [facility] al Neutrophils [#/volume] in Blood by Automated count 5.39 10^3/uL 2.00 - 6.90 [facility] Lymphocytes [#/volume] in Blood by Automated count 2.21 10^3/uL 0.60 - 3.40 [facility] Monocytes [#/volume] in Blood by Automated count 0.56 10^3/uL 0.00 - 0.90 [facility] Eosinophils [#/volume] in Blood by Automated count 0.17 10^3/uL 0.00 - 0.70 [facility] Basophils [#/volume] in Blood by Automated count 0.04 10^3/uL 0.00 - 0.20 [facility] #IG 0.03 10^3/uL 0.00 - 0.10 [facility]spital #NRBC 0.00 10^3/uL 0.00 - 0.00 [facility] MANUAL DIFF NOT INDICATED [facility] RBC MORPH NOT INDICATED [facility] spital ID Date Data Source [id number] 04/26/2020 02:19:00 PM EDT [facility] Name Value Range Interpretation Code Description Data Salma rce(s) Supporting Document(s) CULTURE URINE [facility] spital _CULTURE URINE_$$[id number]$$[id number]$$[id number]$$[id number]$$432784$$283929$$158115$$718946$$166770$$ 167641$$926081$$867745$$209880$$016530$$437593$$551952$$182149$$030981$$312658$$ 501375$$757235$$013869$$647046$$727125$$093356$$284011$$329016 -- Continued on next page --Patient: BANG HAMMER R Order: [id number] Page 2Culture: CULTURE URINE Status: Final ==== -- Continued on next page --Patient: BANG HAMMER R Order: [id number] Page 2Culture: CULTURE URINE Status: Prelim =====$$[id number]$$[id number] DATE/TIME: 04/26/2020 13:05Culture: CULTURE URINE Status: FinalIsolate 1 Escherichia coli Flag: A . . . . . . .1Greater than 100,000 colony forming units per mLSusceptibility profile is consistent with a probable ESBL. Previous result entered on 04/25/2020 06:03 ET Escherichia coliUrine Culture,Comprehensive: [id number] coli Flag: APatient: BANG HAMMER R Order: [id number] Page 3Culture: CULTURE URINE Status: Final ISOLATE [...] S S . . . . . .47358-3Kukdytgjry S S . . . . . .267-5Imipenem S S . . . . . .279-0Levofloxacin S S . . . . . .63066- 8Meropenem S S . . . . . .6652-2Nitrofurantoin S S . . . . . .363-2Piperacillin/Tazobactam S S . . . . . .412-7Tetracycline S S . . . . . .496-0Tobramycin S S . . . . . .508- 2Trimethoprim/Sulfa R R . . . . . .516-5P1 Test performed by: LastlineBaljit [facility] #: [id number] [address] [place] [id number] [facility] [id number] Director : Krunal Durham MD NPI #:Social Media Editor : 04/25/[email or web address] REF 04/26/20.1419.XMT.SENT REF ID Date Data Source [id number] 04/22/2020 04:11:00 PM EDT [facility] Name Value Range Interpretation Code Description Data Salma rce(s) Supporting Document(s) URINALYSIS [facility] lazaro URINALYSIS SOURCE Clean Catch [facility] COLOR yellow NORMAL: Yellow [facility] CLARITY cloudy NORMAL: Clear [facility] Specific gravity of Urine by Test strip 1.010 1.001 - 1.030 [facility] pH 8 5 - 9 [facility] Glucose [Mass/volume] in Urine by Test strip NORM NORMAL: Negat alexandra [facility] Bilirubin.total [Presence] in Urine by Test strip NEG NORMAL: Negative [facility] Ketones [Presence] in Urine by Test strip NEG NORMAL: Negative [facility] Protein [Mass/volume] in Urine by Test strip 100 NORMAL: Negat alexandra [facility] Nitrite [Presence] in Urine by Test strip NEG NORMAL: Negative [facility] BLOOD 250 NORMAL: Negative [facility] Leukocyte esterase [Presence] in Urine by Test strip 500 ТАТЬЯНА L: Negative [facility] Urobilinogen [Mass/volume] in Urine by Test strip 1 less nigel n 1.0 mg/dL [facility] MICROSCOPIC See Below [facility] ital WBC 30 - 40 NORMAL: NONE SEEN A [facility] Erythrocytes [#/volume] in Urine by Test strip TNTC NORMAL: NON E SEEN A [facility] EPITHELIAL FEW NORMAL: NONE SEEN [facility] Bacteria [Presence] in Urine sediment by Light microscopy Tr manuel NORMAL: NONE SEEN [facility] Mucus [Presence] in Urine sediment by Light microscopy Trace NORMAL: NONE SEEN [facility] Procedure Social History Code Duration Value Status Description Data Source(s ) Smoking 05/13/2021 12:00:00 AM EDT Patient has never smoked co mpleted Patient has never smoked MEDENT ([facility], [facility]) Smoking 05/12/2021 12:00:00 AM EDT Never Smoker completed Never S moker eCW1 ([facility]) Smoking 04/20/2021 12:00:00 AM EDT Never Smoker completed Never S moker eCW1 ([facility]) Smoking 04/20/2021 12:00:00 AM EDT Never Smoker completed Never S moker eCW1 ([facility]) Smoking 03/27/2021 12:00:00 AM EDT Never smoker completed Never s moker [employer] ([facility]) Smoking 12/07/2020 12:00:00 AM EDT Never Smoker completed Never S moker eCW1 ([facility]) Smoking 12/07/2020 12:00:00 AM EDT Never Smoker completed Never S moker eCW1 ([facility]) Smoking 12/07/2020 12:00:00 AM EDT Never Smoker completed Never S moker eCW1 ([facility]) Smoking 11/17/2020 12:00:00 AM EDT Never Smoker completed Never S moker eCW1 ([facility]) Smoking 10/13/2020 12:00:00 AM EST Never Smoker completed Never S moker eCW1 ([facility]) Smoking 06/18/2020 12:00:00 AM EDT Never Smoker completed Never S moker eCW1 ([facility]) Smoking 06/18/2020 12:00:00 AM EDT Never Smoker completed Never S moker eCW1 ([facility]) Smoking 06/18/2020 12:00:00 AM EDT Never Smoker completed Never S moker eCW1 ([facility]) Smoking 06/18/2020 12:00:00 AM EDT Never Smoker completed Never S moker eCW1 ([facility]) Smoking 06/05/2020 12:00:00 AM EDT Never Smoker completed Never S moker eCW1 ([facility]) Smoking 06/05/2020 12:00:00 AM EDT Never Smoker completed Never S moker eCW1 ([facility]) Vital Signs ID Date Data Source UNK Name Value Range Interpretation Code Description Data Source(s) Body weight 137 [lb_av] 137 [lb_av] eCW1 ([facility]) Body weight 62.14 kg 62.14 kg W1 ([facility]) Body height 60 [in_i] 60 [in_i] W1 ([facility]) Body mass index (BMI) [Ratio] 26.756 kg/m2 26.7 56 kg/m2 [facility] ([facility]) Systolic blood pressure 118 mm[Hg] 118 mm[Hg] e CW1 ([facility]) Diastolic blood pressure 68 mm[Hg] 68 mm[Hg] eCW1 ([facility]) Systolic blood pressure 117 mm[Hg] 117 mm[Hg] M EDENT ([facility], [facility]) Diastolic blood pressure 82 mm[Hg] 82 mm[Hg] MEDENT ([facility], [facility]) Heart rate 67 /min 67 /min [facility], [facility]) Respiratory rate 16 /min 16 /min [facility] ( [facility], [facility]) Oxygen saturation in Arterial blood by Pulse oximetry 97 % 97 % [facility], [facility]) Body temperature 96.6 [degF] 96.6 [degF] MEDENT ([facility], [facility]) Body weight 136.00 [lb_av] 136.00 [lb_av] MEDEN T ([facility], [facility]) Body height 60 [in_i] 60 [in_i] [facility] 5'0" Body mass index (BMI) [Ratio] 26.6 kg/m2 26.6 k g/m2 [facility] ([facility]) Body weight 137.8 [lb_av] 137.8 [lb_av] eCW1 ([facility]) Body weight 62.5 kg 62.5 kg W1 ([facility]) Body height 60 [in_i] 60 [in_i] W1 ([facility]) Body mass index (BMI) [Ratio] 26.912 kg/m2 26.9 12 kg/m2 eCW1 ([facility]) Systolic blood pressure 118 mm[Hg] 118 mm[Hg] e CW1 ([facility]) Diastolic blood pressure 62 mm[Hg] 62 mm[Hg] eCW1 ([facility]) Body height 152.40 cm 152.40 cm [employer] ([facility]) Body weight 66.224 kg 66.224 kg [facility] ([facility]) Systolic blood pressure 118 mm[Hg] 118 mm[Hg] N extGen ([facility]) Diastolic blood pressure 76 mm[Hg] 76 mm[Hg] [employer] ([facility]) Body mass index (BMI) [Ratio] 28.51 kg/m2 Overweight 28.51 kg/m2 [employer] ([facility]) Body weight 149 [lb_av] 149 [lb_av] eCW1 ([facility]) Body height 60 [in_i] 60 [in_i] eCW1 ([facility]) Body mass index (BMI) [Ratio] 29.10 kg/m2 29.10 kg/m2 eCW1 ([facility]) Heart rate 61 /min 61 /min eCW1 ([facility]) Respiratory rate 17 /min 17 /min eCW1 ([facility]) Body temperature 97.5 [degF] 97.5 [degF] eCW1 ( [facility]) Systolic blood pressure 115 mm[Hg] 115 mm[Hg] e CW1 ([facility]) Diastolic blood pressure 77 mm[Hg] 77 mm[Hg] eCW1 ([facility]) Body weight 149 [lb_av] 149 [lb_av] eCW1 ([facility]) Body weight 67.59 kg 67.59 kg eCW1 ([facility]) Body height 60 [in_i] 60 [in_i] eCW1 ([facility]) Body mass index (BMI) [Ratio] 29.1 kg/m2 29.1 k g/m2 eCW1 ([facility]) Systolic blood pressure 112 mm[Hg] 112 mm[Hg] e CW1 ([facility]) Diastolic blood pressure 74 mm[Hg] 74 mm[Hg] eCW1 ([facility]) Body weight 153.8 [lb_av] 153.8 [lb_av] eCW1 ([facility]) Body height 60 [in_i] 60 [in_i] eCW1 ([facility]) Body mass index (BMI) [Ratio] 30.03 kg/m2 30.03 kg/m2 eCW1 ([facility]) Heart rate 84 /min 84 /min eCW1 ([facility]) Respiratory rate 17 /min 17 /min eCW1 ([facility]) Body temperature 97.4 [degF] 97.4 [degF] eCW1 ( [facility]) Systolic blood pressure 117 mm[Hg] 117 mm[Hg] e CW1 ([facility]) Diastolic blood pressure 57 mm[Hg] 57 mm[Hg] eCW1 ([facility]) Systolic blood pressure 114 mm[Hg] 114 mm[Hg] M EDENT ([facility], [facility]) Diastolic blood pressure 79 mm[Hg] 79 mm[Hg] MEDENT ([facility], [facility]) Heart rate 66 /min 66 /min MEDENT ([facility], [facility]) Respiratory rate 12 /min 12 /min [facility] ( [facility], [facility]) Oxygen saturation in Arterial blood by Pulse oximetry 99 % 99 % [facility] ([facility]) Body temperature 97.9 [degF] 97.9 [degF] [facility], [facility]) Body weight 144.00 [lb_av] 144.00 [lb_av] [facility] ([facility]) Body height 60 [in_i] 60 [in_i] [facility] ([facility]) 5'0" Body mass index (BMI) [Ratio] 28.1 kg/m2 28.1 k g/m2 [facility] ([facility]) [place] body weight 100 [lb_av] 100 [lb_av] [facility] Body surface area Derived from formula 1.61 m2 1.61 m2 [facility] ([facility]) Body weight 64.468 kg 64.468 kg [facility] ([facility]) Body mass index (BMI) [Ratio] 27.8 kg/m2 27.8 k g/m2 [facility] ([facility]) Body weight 142.12 [lb_av] 142.12 [lb_av] MEDEN T ([facility]) Body height 60 [in_i] 60 [in_i] [facility] ([facility]) 5'0" Diastolic blood pressure 58 mm[Hg] 58 mm[Hg] MEDENT ([facility], ) Systolic blood pressure 120 mm[Hg] 120 mm[Hg] M EDENT ([facility], ) Body weight 146.2 [lb_av] 146.2 [lb_av] eCW1 ([facility]) Body height 60 [in_i] 60 [in_i] eCW1 ([facility]) Body mass index (BMI) [Ratio] 28.55 kg/m2 28.55 kg/m2 eCW1 ([facility]) Heart rate 62 /min 62 /min eCW1 ([facility]) Respiratory rate 17 /min 17 /min eCW1 ([facility]) Body temperature 97.7 [degF] 97.7 [degF] eCW1 ( [facility]) Systolic blood pressure 115 mm[Hg] 115 mm[Hg] e CW1 ([facility]) Diastolic blood pressure 68 mm[Hg] 68 mm[Hg] eCW1 ([facility]) Body weight 145 [lb_av] 145 [lb_av] eCW1 ([facility]) Body height 60 [in_i] 60 [in_i] eCW1 ([facility]) Body mass index (BMI) [Ratio] 28.32 kg/m2 28.32 kg/m2 eCW1 ([facility]) Heart rate 80 /min 80 /min eCW1 ([facility]) Respiratory rate 18 /min 18 /min eCW1 ([facility]) Body temperature 97.2 [degF] 97.2 [degF] eCW1 ( [facility]) Systolic blood pressure 118 mm[Hg] 118 mm[Hg] e CW1 ([facility]) Diastolic blood pressure 68 mm[Hg] 68 mm[Hg] eCW1 ([facility]) Body weight 138.8 [lb_av] 138.8 [lb_av] eCW1 ([facility]) Body height 60 [in_i] 60 [in_i] eCW1 ([facility]) Body mass index (BMI) [Ratio] 27.10 kg/m2 27.10 kg/m2 eCW1 ([facility]) Heart rate 67 /min 67 /min eCW1 ([facility]) Respiratory rate 17 /min 17 /min eCW1 ([facility]) Body temperature 97.6 [degF] 97.6 [degF] eCW1 ( [facility]) Systolic blood pressure 121 mm[Hg] 121 mm[Hg] e CW1 ([facility]) Diastolic blood pressure 77 mm[Hg] 77 mm[Hg] eCW1 ([facility]) Respiratory rate 12 /min 12 /min MEDENT ( [facility], [facility]) Systolic blood pressure 124 mm[Hg] 124 mm[Hg] M EDENT ([facility], [facility]) Diastolic blood pressure 84 mm[Hg] 84 mm[Hg] MEDENT ([facility], [facility]) Heart rate 59 /min 59 /min MEDENT ([facility] [place], [facility]) Oxygen saturation in Arterial blood by Pulse oximetry 95 % 95 % [facility], [facility]) Body temperature 98.0 [degF] 98.0 [degF] MEDENT ([facility], [facility]) Body weight 138.00 [lb_av] 138.00 [lb_av] MEDEN T ([facility], [facility]) Body height 60 [in_i] 60 [in_i] MEDENT ([facility] 5'0" Body mass index (BMI) [Ratio] 26.9 kg/m2 26.9 k g/m2 [facility] Patient Treatment Plan of Care Planned Activity Planned Date Details Description Data Source (s) Metoclopramide 10 MG Oral Tablet [Reglan] 03/29/2021 12:00:00 AM ED T eCW1 ([facility]) terbinafine 250 MG Oral Tablet 06/18/2020 12:00:00 AM EDT eCW1 ([facility]) terbinafine 250 MG Oral Tablet 06/18/2020 12:00:00 AM EDT eCW1 ([facility]) terbinafine 250 MG Oral Tablet 06/18/2020 12:00:00 AM EDT eCW1 ([facility]) terbinafine 250 MG Oral Tablet 06/18/2020 12:00:00 AM EDT eCW1 ([facility])
== END 2021-06-07 14:25 | disposition home or self-care (01) ==
LOC: M ED 12:06
DX: Z04.1 Encounter for examination and observation following transport accident (principal); Z3A.16 16 weeks gestation of pregnancy

== ENCOUNTER → 2021-06-22 | Outpatient (CLI) | payer OTHER | LOC: M WHC 12:59 | PROVIDERS: ATTEND Obstetrics & Gynecology | DX: Z53.20 Procedure and treatment not carried out because of patient's decision for unspecified reasons (principal) ==